=== PATIENT | female | born 2000 ===

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

== ENCOUNTER 2020-05-07 07:31 | Emergency (ER) | payer OTHER, SELFPAY ==
--- NOTE | ~2020-05-07 | CT_ITS ---
EXAMINATION: CT ABDOMEN AND PELVIS WITH CONTRAST CLINICAL INFORMATION: Right-sided abdominal pain COMPARISON: None TECHNIQUE: Multidetector volumetric images were obtained from the superior aspect of the liver through the pubic symphysis following administration 85 mL of Omnipaque 350 intravenous contrast. Sagittal and coronal reformatted images were obtained on the technologist's workstation. Oral contrast: No This CT examination was performed using dose optimization techniques as appropriate, variously including the following: *Automated exposure control *Adjustment of mA and/or kV according to patient size (this includes techniques or standardized protocols for targeted exams where dose is matched to indication/reason for exam; i.e. extremities or head) *Use of iterative reconstruction technique DLP: 384 mGy-cm FINDINGS: LUNG BASES: There is a 5 mm nodule left lower lobe axial image 1, series 5. Rest of lungs are clear. The heart size and pulmonary vascularity is normal. LIVER, GALLBLADDER, AND BILIARY TREE: The liver is normal in size, shape, and attenuation. No focal hepatic lesion or biliary ductal dilatation is present. The gallbladder is unremarkable with no evidence of radiopaque gallstones, gallbladder wall thickening, or obvious pericholecystic inflammatory changes. PANCREAS: Unremarkable. SPLEEN: Unremarkable. ADRENAL GLANDS: Unremarkable. KIDNEYS AND URETERS: The kidneys are normal in size, shape, and attenuation. No hydronephrosis or calculi seen. Mild bilateral ureteral prominence is seen but no obstructive etiology seen. No perinephric stranding. BLADDER: Unremarkable. GASTROINTESTINAL TRACT: There is moderate stool and gas seen throughout the colon without significant distention. The cecum and I see ejection lies in the right pelvis. The small bowel loops are normal caliber. Appendix is not visualized well. ABDOMINAL WALL: No significant hernia is appreciated. LYMPH NODES: Normal. VASCULAR: Unremarkable. PELVIC VISCERA: There is a regular shaped thick-walled enhancing corpus luteal cyst in the left ovary measuring 2.1 x 1.40 cm. The uterus is anteverted and heterogeneous. No free fluid seen. OSSEOUS STRUCTURES: Unremarkable. CT/CT abdomen pelvis w con IMPRESSION: Moderate to significant constipation. No inflammatory process in the right lower quadrant. Appendix is not seen. No radiopaque urolith. Nonspecific bilateral prominence of both ureters without obstructive etiology. Small corpus luteal cyst left ovary.
--- NOTE | ~2020-05-07 | US_ITS ---
EXAMINATION: US ABDOMEN LIMITED CLINICAL INFORMATION: Right upper quadrant abdominal pain. COMPARISON: None TECHNIQUE: Real-time imaging of the right upper quadrant abdominal viscera. FINDINGS: PANCREAS: Visualized portions unremarkable. Tail obscured by bowel gas shadowing. LIVER: Unremarkable. GALLBLADDER: Unremarkable. COMMON BILE DUCT: Normal in caliber measuring 0.5 cm in diameter. RIGHT KIDNEY: 9.1 cm. Unremarkable. FREE FLUID: None. US/US abdomen limited IMPRESSION: Unremarkable right upper quadrant abdominal ultrasound.
[2020-05-07 07:45] VITALS: BP 116/90; PULSE 66; RESP 16; TEMP 36.8; O2SAT 98; BMI 22.9
[2020-05-07 08:31] VITALS: BP 120/78; PULSE 76; RESP 18; O2SAT 99
--- NOTE | 2020-05-07 08:32 | ED.ABDPAIN ---
HPI - Abdominal Pain General Chief Complaint: Abdominal Pain Stated Complaint: abd pain, vomiting blood Time Seen by Provider: 05/07/20 08:29 Source: patient Mode of arrival: ambulatory Limitations: no limitations History of Present Illness HPI narrative: This is a 20-year-old female with history of A0 vaginal delivery her son is now 1 years old otherwise no past medical/surgical history presenting ambulatory to triage with complaint of right-sided abdominal pain which is described as diffuse mostly in the right upper quadrant ongoing for the past 1 month no specific pattern with p.o. intake pain is described as stabbing and sharp intermittent that makes her nauseated and pain became severe last night after she had burger for dinner and throughout the night had severe right-sided abdominal pain that is shooting like. There is associated nausea and vomiting but no diarrhea. MD elicited complaint: abdominal pain Pertinent past history: none Onset (ago): day(s) Pain Consistency: constant Location: diffuse, RUQ and RLQ Severity: severe Quality: stabbing and aching Radiation: none Migration to: no migration Exacerbating factors: movement Relieving factors: nothing Associated symptoms: nausea Related Data Previous Rx's Medication Instructions Recorded magnesium citrate 300 ml PO DAILY PRN #296 ml 05/07/20 polyethylene glycol 3350 [Miralax] 17 g PO DAILY PRN #238 g 05/07/20 Allergies Allergy/AdvReac Type Severity Reaction Status Date / Time No Known Allergies Allergy Verified 05/07/20 07:48 [No Known Allergies*] Review of Systems Review of Systems Constitutional: No Weight loss, No Fever, No Chills, No Night Sweats, No Fatigue, No Malaise ENT/Mouth: No Hearing loss, No Ear Pain, No Nasal Congestion, No Sinus Pain, No Hoarseness, No sore throat, No Rhinorrhea, No Swallowing Difficulty Eyes: No Eye Pain, No Swelling, No Redness, No Foreign Body, No Discharge, No Vision Changes Cardiovascular: No Chest Pain, No SOB, No Dyspnea on Exertion, No Orthopnea, No Edema, No Palpitations Respiratory: No Cough, No Sputum, No Wheezing, No Smoke Exposure, No Dyspnea Gastrointestinal: As noted per HPI, No Hematochezia, No Melena Genitourinary: No Dysuria, No Urinary Frequency, No Hematuria, No Urinary Incontinence, No Urgency, No Flank Pain, No Urinary Flow Changes, No Hesitancy Musculoskeletal: No joint pain, No Myalgias, No Joint Swelling Skin: No Skin Lesions, No rash Neuro: No Weakness, No Numbness, No Paresthesias, No Loss of Consciousness, No Dizziness, No Headache Psych: No Social Issues Heme/Lymph: No Bruising, No Bleeding,No Lymphadenopathy Endocrine: No Polyuria, No Polydipsia, No Temperature Intolerance Yes all other systems are reviewed and are negative Physical Exam Vital Signs: Vital Signs: Last Vital Signs Temp 98.3 F 05/07/20 07:45 Pulse 80 05/07/20 10:19 Resp 18 05/07/20 10:19 BP 92/56 L 05/07/20 10:19 Pulse Ox 100 05/07/20 10:19 Body Mass Index 22.9 Reviewed Const: General: acute distress (Appears uncomfortable intermittently grimacing) mild; No intoxicated appearing Nutritional Appearance: average body habitus Orientation/consciousness: patient oriented x3 HENMT: Head: Yes normal to inspection Ears: hearing grossly normal bilaterally Eyes: General: appearance normal, both eyes and all related structures Visual Cook: normal visual cook by confrontation Neck: Neck: Yes normal visual inspection, No positive Brudzinski's sign, No positive Kernig's sign and No tender Thyroid: Thyroid normal Chest: Chest palpation & inspection: normal inspection of the chest Resp: Effort & Inspection: normal respiratory effort Auscultation: clear to auscultation bilaterally Cardio: Jugular venous distension: no JVD Rhythm: regular rhythm Heart sounds: S1 normal heart sound present and S2 normal heart sound present GI: Other: Started crying and became tearful with palpation of the abdomen Inspection: Yes normal to inspection Palpation (GI): Soft to palpation, Tenderness to palpation present (GI) in the RLQ and in the RUQ, Guarding due to palpation present (GI) in the RLQ and in the RUQ, No hepatosplenomegaly present and Palpable mass present Percussion: Yes normal to percussion Auscultation: normal bowel sounds : General: Yes no CVA tenderness Back/Spine/Pelvis: Back: no CVA tenderness Skin: General skin exam: no rashes or lesions noted Neuro: General: patient oriented x3 Extrem: General: Yes normal to inspection Course Reevaluation(s) Reevaluation #1: Ultrasound without evidence of acute coli. Labs with no leukocytosis, Exam still tenderness diffusely on the right side proceed to abdominal pelvis CT rule out acute appy. She does tell me she has been having BMs per her usual. Reevaluation #2: 1010 Resting comfortably at this time in no acute distress. Informed that there might be slight delay in CT read given downtime unable to view imaging. Reevaluation #3: 1100 CT abdomen pelvis shows significant constipation otherwise no acute appy. Has not had any nausea or vomiting here in the ED and resting comfortably. Given the reassuring labs and imaging findings will start her on bowel regimen and outpatient follow-up. MDM - Abdominal Pain MDM Narrative Medical decision making narrative: Acute coli versus appendicitis diffusely tender on the right side abdomen both right upper and lower quadrant. Afebrile, non tachy, blood pressure within normal limits. Lab work including type and screen ordered. Gallbladder ultrasound/abdominal pelvis CT rule out acute coli versus appendicitis versus perforation. Will treat with fluids, p.r.n. analgesia and antiemetics. Differential Diagnosis Differential diagnosis: Likely abdominal pain and acute appendicitis; Unlikely aortic dissection, bowel perforation, calculus of kidney, constipation, diverticulitis, endometriosis, gastroenteritis, gastritis, mesenteric ischemia, ovarian cyst, pancreatitis, peptic ulcer disease, renal colic and small bowel obstruction Medical Records Attestation: I reviewed the patient's medical records. Lab Data Attestation: I reviewed the patient's lab results. Result diagrams: 05/07/20 08:51 05/07/20 08:51 Labs: Lab Results 05/07/20 05/07/20 05/07/20 Range/Units 08:51 08:51 08:51 WBC 6.4 (4.8-10.8) X10*3/uL RBC 4.79 (4.20-5.50) X10*6/uL Hgb 13.1 (12.0-16.0) g/dl Hct 40.3 (37-47) % MCV 84.1 (80-98) fL MCH 27.3 (27.0-33.0) pg MCHC 32.5 (31.0-35.0) g/dl RDW 12.6 (11.0-16.0) % Plt Count 211 (160-400) X10*3/uL MPV 12.3 (9.4-12.3) fL Immature Gran % (Auto) 0.3 (0.0-0.4) % Neut % (Auto) 56.6 (45-73) % Lymph % (Auto) 31.2 (20-40) % Cook % (Auto) 10.1 (2-11) % Eos % (Auto) 1.3 (0-4) % Baso % (Auto) 0.5 (0-2) % Lymph # (Auto) 2.0 (1.2-4.9) X10*3/uL Cook # (Auto) 0.6 (0.1-1.2) X10*3/uL Eos # (Auto) 0.1 (0.0-0.4) X10*3/uL Baso # (Auto) 0.0 (0.0-0.2) X10*3/uL Abs Immat Gran (auto) 0.02 (0.00-0.03) X10*3/uL Absolute Neuts (auto) 3.6 (2.0-8.3) X10*3/uL Absolute Nucleated RBC 0.000 (0.0-0.012) X10*3/uL Nucleated RBC % (auto) 0.0 (0.0-0.2) /100WBC PT 12.5 (10.8-13.0) SEC INR 1.1 (0.9-1.1) APTT 40.1 H (24.1-38.0) SEC Sodium 138 (135-145) mmol/L Potassium 4.1 (3.3-5.1) mmol/L Chloride 108 (96-108) mmol/L Carbon Dioxide 21 L (22-29) mmol/L Anion Gap 13 (12-20) BUN 12 (9-16) mg/dL Creatinine 0.79 (0.5-1.4) mg/dL Estim Creat Clear Calc 79.7 Estimated GFR > 60 Random Glucose 104 (60-115) mg/dL Calcium 8.9 (8.4-10.2) mg/dL Total Bilirubin 0.2 (0.0-1.0) mg/dL AST 15 (5-31) U/L ALT 11 (0-31) U/L Alkaline Phosphatase 66 (39-117) U/L Troponin I High Sens (<3.5-17.0) ng/L Total Protein 7.8 (6.5-8.0) g/dL Albumin 4.3 (3.5-5.0) g/dL Urine Color Urine Appearance Urine pH (5.0-8.0) Ur Specific [place] (1.005-1.025) Urine Protein (NEG-TRACE) MG/DL Urine Glucose (UA) (NEG) MG/DL Urine Ketones (NEG) MG/DL Urine Blood (NEG) Urine Nitrite (NEG) Ur Leukocyte Esterase (NEG) Urine RBC (0) /HPF Urine WBC (0-4) /HPF Ur Squamous Epith Cells /LPF Urine Bacteria /LPF Urine Mucus /LPF Urine Test (NEGATIVE) COVID-19 ([facility]) (Negative) COVID-19 Clin Com Blood Type Antibody Screen 05/07/20 05/07/20 05/07/20 Range/Units 08:51 08:51 08:51 WBC (4.8-10.8) X10*3/uL RBC (4.20-5.50) X10*6/uL Hgb (12.0-16.0) g/dl Hct (37-47) % MCV (80-98) fL MCH (27.0-33.0) pg MCHC (31.0-35.0) g/dl RDW (11.0-16.0) % Plt Count (160-400) X10*3/uL MPV (9.4-12.3) fL Immature Gran % (Auto) (0.0-0.4) % Neut % (Auto) (45-73) % Lymph % (Auto) (20-40) % Cook % (Auto) (2-11) % Eos % (Auto) (0-4) % Baso % (Auto) (0-2) % Lymph # (Auto) (1.2-4.9) X10*3/uL Cook # (Auto) (0.1-1.2) X10*3/uL Eos # (Auto) (0.0-0.4) X10*3/uL Baso # (Auto) (0.0-0.2) X10*3/uL Abs Immat Gran (auto) (0.00-0.03) X10*3/uL Absolute Neuts (auto) (2.0-8.3) X10*3/uL Absolute Nucleated RBC (0.0-0.012) X10*3/uL Nucleated RBC % (auto) (0.0-0.2) /100WBC PT (10.8-13.0) SEC INR (0.9-1.1) APTT (24.1-38.0) SEC Sodium (135-145) mmol/L Potassium (3.3-5.1) mmol/L Chloride (96-108) mmol/L Carbon Dioxide (22-29) mmol/L Anion Gap (12-20) BUN (9-16) mg/dL Creatinine (0.5-1.4) mg/dL Estim Creat Clear Calc Estimated GFR Random Glucose (60-115) mg/dL Calcium (8.4-10.2) mg/dL Total Bilirubin (0.0-1.0) mg/dL AST (5-31) U/L ALT (0-31) U/L Alkaline Phosphatase (39-117) U/L Troponin I High Sens < 3.5 (<3.5-17.0) ng/L Total Protein (6.5-8.0) g/dL Albumin (3.5-5.0) g/dL Urine Color YELLOW Urine Appearance CLEAR Urine pH 6.0 (5.0-8.0) Ur Specific [place] 1.025 (1.005-1.025) Urine Protein NEG (NEG-TRACE) MG/DL Urine Glucose (UA) NEG (NEG) MG/DL Urine Ketones NEG (NEG) MG/DL Urine Blood NEG (NEG) Urine Nitrite NEG (NEG) Ur Leukocyte Esterase NEG (NEG) Urine RBC 0 (0) /HPF Urine WBC 1-4 (0-4) /HPF Ur Squamous Epith Cells 1+ /LPF Urine Bacteria TRACE /LPF Urine Mucus 1+ /LPF Urine Test (NEGATIVE) COVID-19 ([facility]) Negative (Negative) COVID-19 Clin Com See Note Blood Type Antibody Screen 05/07/20 05/07/20 Range/Units 08:51 09:30 WBC (4.8-10.8) X10*3/uL RBC (4.20-5.50) X10*6/uL Hgb (12.0-16.0) g/dl Hct (37-47) % MCV (80-98) fL MCH (27.0-33.0) pg MCHC (31.0-35.0) g/dl RDW (11.0-16.0) % Plt Count (160-400) X10*3/uL MPV (9.4-12.3) fL Immature Gran % (Auto) (0.0-0.4) % Neut % (Auto) (45-73) % Lymph % (Auto) (20-40) % Cook % (Auto) (2-11) % Eos % (Auto) (0-4) % Baso % (Auto) (0-2) % Lymph # (Auto) (1.2-4.9) X10*3/uL Cook # (Auto) (0.1-1.2) X10*3/uL Eos # (Auto) (0.0-0.4) X10*3/uL Baso # (Auto) (0.0-0.2) X10*3/uL Abs Immat Gran (auto) (0.00-0.03) X10*3/uL Absolute Neuts (auto) (2.0-8.3) X10*3/uL Absolute Nucleated RBC (0.0-0.012) X10*3/uL Nucleated RBC % (auto) (0.0-0.2) /100WBC PT (10.8-13.0) SEC INR (0.9-1.1) APTT (24.1-38.0) SEC Sodium (135-145) mmol/L Potassium (3.3-5.1) mmol/L Chloride (96-108) mmol/L Carbon Dioxide (22-29) mmol/L Anion Gap (12-20) BUN (9-16) mg/dL Creatinine (0.5-1.4) mg/dL Estim Creat Clear Calc Estimated GFR Random Glucose (60-115) mg/dL Calcium (8.4-10.2) mg/dL Total Bilirubin (0.0-1.0) mg/dL AST (5-31) U/L ALT (0-31) U/L Alkaline Phosphatase (39-117) U/L Troponin I High Sens (<3.5-17.0) ng/L Total Protein (6.5-8.0) g/dL Albumin (3.5-5.0) g/dL Urine Color Urine Appearance Urine pH (5.0-8.0) Ur Specific [place] (1.005-1.025) Urine Protein (NEG-TRACE) MG/DL Urine Glucose (UA) (NEG) MG/DL Urine Ketones (NEG) MG/DL Urine Blood (NEG) Urine Nitrite (NEG) Ur Leukocyte Esterase (NEG) Urine RBC (0) /HPF Urine WBC (0-4) /HPF Ur Squamous Epith Cells /LPF Urine Bacteria /LPF Urine Mucus /LPF Urine Test NEGATIVE (NEGATIVE) COVID-19 ([facility]) (Negative) COVID-19 Clin Com Blood Type O Positive Antibody Screen NEGATIVE Imaging Data Abdominal/pelvis CT with IV contrast: Radiologist's impression: [address] [id number] Scan ReportSigned Patient: Miranda PurdyMR#: [id number]: 2000Acct:[id number]/Sex: 20 / FADM Date: 05/07/20Loc: Nathalie Dr: Ordering Physician: Gregor Amanda NP Date of Service: 05/07/20 Procedure(s): CT abdomen pelvis w con Accession Number(s): [id number] cc: Gregor Amanda NP~ EXAMINATION: CT ABDOMEN AND PELVIS WITH CONTRAST CLINICAL INFORMATION: Right-sided abdominal pain COMPARISON: None TECHNIQUE: Multidetector volumetric images were obtained from the superior aspect of the liver through the pubic symphysis following administration 85 mL of Omnipaque 350 intravenous contrast. Sagittal and coronal reformatted images were obtained on the technologist's workstation. Oral contrast: No This CT examination was performed using dose optimization techniques as appropriate, variously including the following: *Automated exposure control *Adjustment of mA and/or kV according to patient size (this includes techniques or standardized protocols for targeted exams where dose is matched to indication/reason for exam; i.e. extremities or head) *Use of iterative reconstruction technique DLP: 384 mGy-cm FINDINGS: LUNG BASES: There is a 5 mm nodule left lower lobe axial image 1, series 5. Rest of lungs are clear. The heart size and pulmonary vascularity is normal. LIVER, GALLBLADDER, AND BILIARY TREE: The liver is normal in size, shape, and attenuation. No focal hepatic lesion or biliary ductal dilatation is present. The gallbladder is unremarkable with no evidence of radiopaque gallstones, gallbladder wall thickening, or obvious pericholecystic inflammatory changes. PANCREAS: Unremarkable. SPLEEN: Unremarkable. ADRENAL GLANDS: Unremarkable. KIDNEYS AND URETERS: The kidneys are normal in size, shape, and attenuation. No hydronephrosis or calculi seen. Mild bilateral ureteral prominence is seen but no obstructive etiology seen. No perinephric stranding. BLADDER: Unremarkable. GASTROINTESTINAL TRACT: There is moderate stool and gas seen throughout the colon without significant distention. The cecum and I see ejection lies in the right pelvis. The small bowel loops are normal caliber. Appendix is not visualized well. ABDOMINAL WALL: No significant hernia is appreciated. LYMPH NODES: Normal. VASCULAR: Unremarkable. PELVIC VISCERA: There is a regular shaped thick-walled enhancing corpus luteal cyst in the left ovary measuring 2.1 x 1.40 cm. The uterus is anteverted and heterogeneous. No free fluid seen. OSSEOUS STRUCTURES: Unremarkable. CT/CT abdomen pelvis w con IMPRESSION: Moderate to significant constipation. No inflammatory process in the right lower quadrant. Appendix is not seen. No radiopaque urolith. Nonspecific bilateral prominence of both ureters without obstructive etiology. Small corpus luteal cyst left ovary. Dictated By:SUNITA PIEDRA MDSigned By:<Electronically signed by SUNITA PIEDRA MD in OV>05/07/20 1058 DD/ 0831TD/TT: Aviation Program Manager: NICKI Abdominal ultrasound: Radiologist's impression: Miranda Purdy 20 F [address] [facility] [place] [id number] ReportSigned Patient: Miranda PurdyMR#: [id number]: 2000Acct:[id number]/Sex: 20 / FADM Date: 05/07/20Loc: DREAAttmin Dr: Ordering Physician: Gregor Amanda NP Date of Service: 05/07/20 Procedure(s): US abdomen limited Accession Number(s): [id number] cc: Gregor Amanda NP~ EXAMINATION: US ABDOMEN LIMITED CLINICAL INFORMATION: Right upper quadrant abdominal pain. COMPARISON: None TECHNIQUE: Real-time imaging of the right upper quadrant abdominal viscera. FINDINGS: PANCREAS: Visualized portions unremarkable. Tail obscured by bowel gas shadowing. LIVER: Unremarkable. GALLBLADDER: Unremarkable. COMMON BILE DUCT: Normal in caliber measuring 0.5 cm in diameter. RIGHT KIDNEY: 9.1 cm. Unremarkable. FREE FLUID: None. US/US abdomen limited IMPRESSION: Unremarkable right upper quadrant abdominal ultrasound. Dictated By:AIDEE YI MDSigned By:<Electronically signed by AIDEE YI MD in OV>05/07/20925 DD/ 8TD/TT: Aviation Program Manager: KADEEM Discharge Plan Discharge Clinical Impression: Constipation Patient Disposition: Home, Self-Care Instructions: Constipation (ED) Additional Instructions: Your blood work was overall stable today Your COVID test was negative The ultrasound of her gallbladder was within normal limits. CT scan showed significant constipation otherwise no acute intra-abdominal process Push fluids, high-fiber diet, stool softeners as reviewed Return if any concerns or worsening symptoms Thank you Prescriptions: New polyethylene glycol 3350 [Miralax] 17 gram/dose powder 17 g PO DAILY PRN (Reason: laxative effect) Qty: 238 RF: 0 magnesium citrate Solution 300 ml PO DAILY PRN (Reason: constipation) Qty: 296 RF: 2 Referrals: Gina Arroyo MD [Primary Care Provider] - 3 days Stand Alone Forms: Work/School Release [facility] Past Medical History Medical History No known health problems Social History Social History Smoking Status: Never smoker Use of substances other than those prescribed or required for medical reasons: No Advance Directives: No Advance Directives Information Provided: No
[2020-05-07] MEDS: 0.9 % Sodium Chloride 1,000 ML 999 ML IV (08:57)
[2020-05-07] MEDS: Morphine Sulfate 4 MG/ML CARTRIDGE IVPUSH (08:57)
[2020-05-07] MEDS: ondansetron HCL 4 MG/2 ML VIAL IVPUSH (08:57)
[2020-05-07 09:06] LABS: MANUAL DIFF FLAG NO
[2020-05-07 09:10] LABS: Basophils Percent Auto 0.5 % (0-2); Eosinophils Absolute Auto 0.1 X10*3/uL (0.0-0.4); Eosinophils Percent Auto 1.3 % (0-4); Hematocrit 40.3 % (37-47); Hemoglobin 13.1 g/dl (12.0-16.0); Imm Gran Abs Auto 0.02 X10*3/uL (0.00-0.03); Imm Gran Pct Auto 0.3 % (0.0-0.4); Lymphocytes Percent Auto 31.2 % (20-40); Mean Corpuscular HGB Conc 32.5 g/dl (31.0-35.0); Mean Corpuscular Hemoglobin 27.3 pg (27.0-33.0); Mean Corpuscular Volume 84.1 fL (80-98); Mean Platelet Volume 12.3 fL (9.4-12.3); Monocytes Absolute Auto 0.6 X10*3/uL (0.1-1.2); Monocytes Percent Auto 10.1 % (2-11); Neutrophils Absolute Auto 3.6 X10*3/uL (2.0-8.3); Neutrophils Percent Auto 56.6 % (45-73); Platelet Count 211 X10*3/uL (160-400); Red Blood Count 4.79 X10*6/uL (4.20-5.50); Red Cell Distribution Width 12.6 % (11.0-16.0); White Blood Count 6.4 X10*3/uL (4.8-10.8)
[2020-05-07 09:16] LABS: Glucose Urine UA NEG (NEG); Leukocyte Esterase Urine NEG (NEG); Nitrite Urine NEG (NEG); Specific Gravity - Urine 1.025 (1.005-1.025); Urine Blood NEG (NEG); Urine Ketones NEG (NEG); Urine Protein NEG (NEG-TRACE)
[2020-05-07 09:18] LABS: INTERNATIONAL NORM RATIO 1.1 (0.9-1.1); Prothrombin Time 12.5 SEC (10.8-13.0)
[2020-05-07 09:19] LABS: Appearance Urine CLEAR; Color Urine YELLOW; UPreg QC Valid YES; Urine Pregnancy NEGATIVE (NEGATIVE)
[2020-05-07 09:21] LABS: Partial Thromboplastin Time 40.1 SEC (24.1-38.0)
[2020-05-07 09:24] LABS: COVID-19 Test Negative (Negative); IDNOW Serial# 9DD0AD1C
[2020-05-07 09:29] LABS: Bacteria Urine TRACE /LPF; RBC Urine 0 /HPF (0); Squamous Epithelial Cell Urine 1+ /LPF
[2020-05-07 09:30] LABS: Mucus Urine 1+ /LPF
[2020-05-07 09:37] LABS: Alanine Aminotransferase 11 U/L (0-31); Albumin Level 4.3 g/dL (3.5-5.0); Alkaline Phosphatase 66 U/L (39-117); Anion Gap 13 (12-20); Aspartate Amino Transferase 15 U/L (5-31); Bilirubin Total 0.2 mg/dL (0.0-1.0); Blood Urea Nitrogen 12 mg/dL (9-16); Calcium 8.9 mg/dL (8.4-10.2); Carbon Dioxide 21 mmol/L (22-29); Chloride 108 mmol/L (96-108); Creatinine Clr Calc Pharmacy 79.7; Estimated Glomerular Filt Rate > 60; Glucose Random 104 mg/dL (60-115); Potassium 4.1 mmol/L (3.3-5.1); Sodium 138 mmol/L (135-145); Total Protein 7.8 g/dL (6.5-8.0)
[2020-05-07 09:42] LABS: Troponin-I High Sensitivity < 3.5 ng/L (<3.5-17.0)
[2020-05-07 10:19] VITALS: BP 92/56; PULSE 80; RESP 18; O2SAT 100
[2020-05-07] MEDS: iohexoL 350 MG/ML 100 ML INFUS..BTL IV (10:25)
== END 2020-05-07 11:47 | disposition home or self-care (01) ==
PROVIDERS: Nurse Practitioner Primary Care; Emergency Provider Emergency Medicine Emergency Medical Services; PCP Internal Medicine
DX: K59.00 Constipation, unspecified (principal); Z20.822 Contact with and (suspected) exposure to COVID-19; R10.11 Right upper quadrant pain
CPT/HCPCS: 36415; 74177; 76705; 80053; 81001; 81025; 84484; 85025; 85610; 85730; 86850; 86900; 87635; 96361; 96374; 96375; 99284; J2270; J2405; Q9967

== ENCOUNTER 2020-10-10 14:44 | Emergency (ER) | payer OTHER, SELFPAY | END 2020-10-10 15:20 | disposition left against medical advice (07) | PROVIDERS: Emergency Provider Emergency Medicine | DX: R50.9 Fever, unspecified (principal) ==

== ENCOUNTER 2020-10-11 06:34 | Emergency (ER) | payer OTHER, SELFPAY ==
[2020-10-11 06:55] VITALS: BP 107/69; PULSE 83; RESP 16; TEMP 36.8; O2SAT 98; BMI 52.9
--- NOTE | 2020-10-11 07:02 | ED.HA ---
HPI - Headache General Chief Complaint: Headache Stated Complaint: Headache Time Seen by Provider: 10/11/20 07:02 Source: patient Mode of arrival: ambulatory Limitations: no limitations History of Present Illness MD elicited complaint: headache Pertinent past history: other (2 months of headaches recenty ) Onset (ago): day(s) (5) Onset description: gradually Location: right, left and temporal Severity: moderate Quality & Timing: throbbing Exacerbating factors: light and noise Relieving factors: NSAIDs Context: occurred at rest Associated symptoms: nausea, vomiting and photophobia Treatments prior to arrival: none Related Data Previous Rx's Medication Instructions Recorded magnesium citrate 300 ml PO DAILY PRN #296 ml 05/07/20 polyethylene glycol 3350 17 17 g PO DAILY PRN #238 g 05/07/20 gram/dose oral powder (Miralax) Allergies Allergy/AdvReac Type Severity Reaction Status Date / Time No Known Allergies Allergy Verified 05/13/20 12:09 [No Known Allergies*] Review of Systems Review of Systems: Constitutional : No Fever, No Chills, No Fatigue ENT/Mouth : No sore throat, No Rhinorrhea Eyes: No Eye Pain, No Swelling, No Redness Cardiovascular : No Chest Pain, No SOB, No Dyspnea on Exertion Respiratory : No Cough, No Sputum Gastrointestinal : pos Nausea, No Vomiting, No Diarrhea, No abdominal Pain Genitourinary : No Dysuria, No Urinary Frequency, No Hematuria, Musculoskeletal : No joint pain, No Myalgias, No Joint Swelling Skin : No Skin Lesions, No rash Neuro : No Weakness, No Numbness, No Dizziness, positive Headache Psych : No Anxiety/Panic, No Depression Heme/Lymph: No Bruising, No Bleeding,No Lymphadenopathy Endocrine : No Polyuria, No Polydipsia All other systems reviewed and are negative [facility] Past Medical History Attestation statement: The following information was validated with the patient. Medical History No known health problems Social History Social History (Updated 10/11/20 @ 07:11 by Gem Real DO) Alcohol intake: never Patient Tobacco Use Status: Never used Tobacco Use of substances other than those prescribed or required for medical reasons: No Advance Directives: No Advance Directives Information Provided: No Patient : No Physical Exam Vital Signs: Vital Signs: Last Vital Signs Temp 98.4 F 10/11/20 08:10 Pulse 78 10/11/20 08:10 Resp 16 10/11/20 09:00 BP 95/64 10/11/20 08:10 Pulse Ox 97 10/11/20 08:10 Body Mass Index 52.9 Appearance: Alert. Oriented X3. No acute distress. Eyes: Pupils equal, round and reactive to light. ENT: Pharynx normal. Normal TMs Neck: Normal inspection. Neck supple. CVS: Normal heart rate and rhythm. Pulses normal. Respiratory: No respiratory distress. Breath sounds normal. Abdomen: Soft and nontender. Skin: Skin warm and dry. Normal skin color. Normal skin turgor. Extremities: No lower extremity edema. No calf ttp Neuro: Oriented X 3. No motor deficit. No sensory deficit. Course Course Course Narrative: patient has family emergency has to leave prior to CT scan feels better, stable for DC at this time contaminated UA no urinary symptoms MDM - Headache MDM Narrative Medical decision making narrative: 20 yo female with hx of recent headaches now worse x 5 days, not toxic, no meningeal signs, normal neuro exam - supportive medications ordered, CT head for mass, COVID swab, unsure if he has had fevers - doubt [employer] infection but has had a cough, IVF and IV meds. Given gradual onset and non toxic appearance doubt SAH. Dispo per results and findings. Lab Data Labs: Lab Results 10/11/20 10/11/20 10/11/20 Range/Units 07:37 08:28 08:28 Urine Color YELLOW Urine Appearance HAZY Urine pH 6.0 (5.0-8.0) Ur Specific [place] >= 1.030 H (1.005-1.025) Urine Protein TRACE (NEG-TRACE) MG/DL Urine Glucose (UA) NEG (NEG) MG/DL Urine Ketones 5 (NEG) MG/DL Urine Blood TRACE (NEG) Urine Nitrite NEG (NEG) Ur Leukocyte Esterase NEG (NEG) Urine RBC 1-4 (0) /HPF Urine WBC 15-29 H (0-4) /HPF Ur Squamous Epith Cells 2+ /LPF Urine Bacteria 1+ /LPF Urine Mucus 3+ /LPF Urine Test NEGATIVE (NEGATIVE) Coronavirus (PCR) POSITIVE A (Negative) Influenza Type A (PCR) NEGATIVE (Negative) Influenza Type B (PCR) NEGATIVE (Negative) RSV RNA Qual (PCR) NEGATIVE (Negative) Discharge Plan Discharge Clinical Impression: Tension headache, COVID-19 Patient Disposition: Home, Self-Care Instructions: Acute Headache (ED), COVID-19 (Coronavirus Disease 2019) (ED) Additional Instructions: return to ED for any worsening symptoms or concerns you left prior to getting a CT scan though your headache is likely related to covid please quaratine yourself and wear a mask at all times Prescriptions: No Action polyethylene glycol 3350 [Miralax] 17 gram/dose powder 17 g PO DAILY PRN (Reason: laxative effect) Qty: 238 RF: 0 magnesium citrate Solution 300 ml PO DAILY PRN (Reason: constipation) Qty: 296 RF: 2 Referrals: Physician,Unknown [Primary Care Provider] - 2 days (PCP if not better) Stand Alone Forms: Work/School Release Interventions: ED Discharge Assessment Last Done: 10/11/20 09:10 Discharge Date/Time: 10/11/20 09:15
[2020-10-11 08:10] VITALS: BP 95/64; PULSE 78; RESP 20; TEMP 36.9; O2SAT 97
[2020-10-11] MEDS: 0.9 % Sodium Chloride 1,000 ML 999 ML IVCONT (08:12)
[2020-10-11] MEDS: Ketorolac Tromethamine 15 MG/ML VIAL IVPUSH (08:13)
[2020-10-11] MEDS: diphenhydrAMINE HCL 50 MG/ML VIAL 25 MG IVPUSH (08:13)
[2020-10-11] MEDS: Metoclopramide HCl 10 MG/2 ML VIAL IVPUSH (08:13)
[2020-10-11 08:38] LABS: Glucose Urine UA NEG (NEG); Leukocyte Esterase Urine NEG (NEG); Nitrite Urine NEG (NEG); Specific Gravity - Urine >= 1.030 (1.005-1.025); UACC Culture Trigger NO; Urine Blood TRACE (NEG); Urine Ketones 5 MG/DL (NEG); Urine Protein TRACE MG/DL (NEG-TRACE)
[2020-10-11 08:39] LABS: Appearance Urine HAZY; Color Urine YELLOW; UPreg QC Valid YES
[2020-10-11 08:40] LABS: Urine Pregnancy NEGATIVE (NEGATIVE)
[2020-10-11 08:46] LABS: Bacteria Urine 1+ /LPF; Squamous Epithelial Cell Urine 2+ /LPF; UACC CULT YES
[2020-10-11 08:47] LABS: Mucus Urine 3+ /LPF
[2020-10-11 08:51] LABS: Influenza A PCR NEGATIVE (Negative); Influenza B PCR NEGATIVE (Negative); Resp Syncy Virus RNA Qual PCR NEGATIVE (Negative); SARS COV2 PCR INHOUSE POSITIVE (Negative)
[2020-10-11 09:00] VITALS: RESP 16
== END 2020-10-11 09:15 | disposition home or self-care (01) ==
PROVIDERS: Emergency Provider Emergency Medicine
DX: U07.1 COVID-19 (principal); G44.209 Tension-type headache, unspecified, not intractable; Z79.899 Other long term (current) drug therapy
CPT/HCPCS: 0241U; 36415; 81001; 81025; 96361; 96374; 96375; 99284; 99285; J1200; J1885; J2765

== ENCOUNTER 2022-01-07 00:16 | Emergency (ER) | payer OTHER, SELFPAY ==
[2022-01-07] VITALS (7 sets, daily range): BP systolic 91–111; BP diastolic 50–64; PULSE 55–88; RESP 16–20; TEMP 36.7–37; O2SAT 97–99; BMI 22.9
--- NOTE | ~2022-01-07 | US_ITS ---
EXAMINATION: US PELVIS CLINICAL INFORMATION: Pelvic pain. LMP 12/23/2021. COMPARISON: CT abdomen/pelvis performed earlier today. TECHNIQUE: Ultrasound of the pelvis is performed using both transabdominal and transvaginal transducers along with Doppler. Transvaginal imaging is performed due to inadequate visualization transabdominally. FINDINGS: The uterus is anteverted and measures 7.3 x 3.5 x 4.8 cm. No fibroids noted. The endometrium measures 0.8 cm in thickness without discrete focal abnormality. The right ovary measures 4.3 x 2 x 3 cm (13.5 mL) and the left ovary measures 2.6 x 2.2 x 2.2 cm (6.6 mL). There is preserved flow to both ovaries on color and spectral Doppler at the moment of this examination. The asymmetric enlargement of the right ovary with respect to the left is likely explained by the presence of a 2.9 x 1.8 x 2.5 cm complicated cyst with heterogeneous but avascular content and septations. There is a small amount of free fluid with echogenic content, likely representing blood products. US/US pelvic and transvaginal IMPRESSION: 1. There is a 2.9 cm complex cyst in the right ovary with septations and internal debris favoring to represent a hemorrhagic cyst. There is a small amount of free fluid in the pelvis with blood products, possibly explained by rupture of this margin cyst. Recommend a follow-up pelvic ultrasound in 6-12 weeks to ensure resolution of these findings. 2. No evidence of ovarian torsion at the moment of this examination.
--- NOTE | ~2022-01-07 | CT_ITS ---
EXAMINATION: CT ABDOMEN AND PELVIS WITHOUT CONTRAST CLINICAL INFORMATION: Lower abdominal pain. COMPARISON: CT abdomen/pelvis 05/07/2020. TECHNIQUE: Multidetector volumetric imaging was performed from the superior aspect of the liver through the pubic symphysis. Sagittal and coronal reformatted images were obtained on the technologist's workstation. This CT examination was performed using dose optimization techniques as appropriate, variously including the following: *Automated exposure control *Adjustment of mA and/or kV according to patient size (this includes techniques or standardized protocols for targeted exams where dose is matched to indication/reason for exam; i.e. extremities or head) *Use of iterative reconstruction technique DLP: 292 mGy-cm FINDINGS: LUNG BASES: Partially imaged left lower lobe pulmonary nodule, approximately 3 mm (4:1), stable compared to 05/07/2020. No focal consolidation or pleural effusion. LIVER, GALLBLADDER, AND BILIARY TREE: The liver is normal in size, shape, and attenuation. No focal hepatic lesion or biliary ductal dilatation is present. The gallbladder is decompressed. No pericholecystic fat stranding. PANCREAS: Unremarkable. SPLEEN: Unremarkable. ADRENAL GLANDS: Unremarkable. KIDNEYS AND URETERS: Punctate bilateral renal calculi. No hydronephrosis. No perinephric fat stranding. BLADDER: Unremarkable. GASTROINTESTINAL TRACT: The stomach and the small bowel are nondilated. Normal appendix (images 55 through 57, series 3). No pericolic inflammatory changes. No evidence of bowel obstruction. ABDOMINAL WALL: No significant hernia is appreciated. LYMPH NODES: Limited assessment in view of lack of IV contrast and paucity of abdominal fat. No bulky lymphadenopathy. VASCULAR: Limited noncontrast examination. Abdominal aorta is of normal diameter. PELVIC VISCERA: Uterus and adnexa are poorly delineated. There is free fluid in the right adnexal region and cul-de-sac with hyperattenuating content in the right adnexal region (3:64) measuring up to 53 Hounsfield units, possibly blood products. OSSEOUS STRUCTURES: No acute or aggressive appearing osseous abnormalities. CT/CT abdomen pelvis wo IV con IMPRESSION: 1. Free fluid in the right adnexal region and cul-de-sac with hyperattenuating content within the fluid of the right adnexal region, likely representing blood products. Findings could be associated with a rupture hemorrhagic cyst, however evaluation is somewhat limited in the absence of IV contrast as the ovaries are not well delineated. Recommend correlation with a pelvic ultrasound. 2. Nonobstructive bilateral renal calculi. 3. Normal appendix.
--- NOTE | ~2022-01-07 | US_ITS ---
EXAMINATION: US PELVIS CLINICAL INFORMATION: Pelvic pain. LMP 12/23/2021. COMPARISON: CT abdomen/pelvis performed earlier today. TECHNIQUE: Ultrasound of the pelvis is performed using both transabdominal and transvaginal transducers along with Doppler. Transvaginal imaging is performed due to inadequate visualization transabdominally. FINDINGS: The uterus is anteverted and measures 7.3 x 3.5 x 4.8 cm. No fibroids noted. The endometrium measures 0.8 cm in thickness without discrete focal abnormality. The right ovary measures 4.3 x 2 x 3 cm (13.5 mL) and the left ovary measures 2.6 x 2.2 x 2.2 cm (6.6 mL). There is preserved flow to both ovaries on color and spectral Doppler at the moment of this examination. The asymmetric enlargement of the right ovary with respect to the left is likely explained by the presence of a 2.9 x 1.8 x 2.5 cm complicated cyst with heterogeneous but avascular content and septations. There is a small amount of free fluid with echogenic content, likely representing blood products. US/US pelvic ovarian doppler IMPRESSION: 1. There is a 2.9 cm complex cyst in the right ovary with septations and internal debris favoring to represent a hemorrhagic cyst. There is a small amount of free fluid in the pelvis with blood products, possibly explained by rupture of this margin cyst. Recommend a follow-up pelvic ultrasound in 6-12 weeks to ensure resolution of these findings. 2. No evidence of ovarian torsion at the moment of this examination.
[2022-01-07 01:15] LABS: MANUAL DIFF FLAG NO
[2022-01-07 01:17] LABS: Basophils Percent Auto 0.4 % (0-2); Eosinophils Absolute Auto 0.1 X10*3/uL (0.0-0.4); Eosinophils Percent Auto 1.5 % (0-4); Hematocrit 40.4 % (37.0-47.0); Hemoglobin 13.3 g/dl (12.0-16.0); Imm Gran Abs Auto 0.03 X10*3/uL (0.00-0.03); Imm Gran Pct Auto 0.4 % (0.0-0.4); Lymphocytes Absolute Auto 2.1 X10*3/uL (1.2-4.9); Mean Corpuscular HGB Conc 32.9 g/dl (31.0-35.0); Mean Corpuscular Hemoglobin 27.7 pg (27.0-33.0); Mean Corpuscular Volume 84.2 fL (80.0-98.0); Mean Platelet Volume 11.1 fL (9.4-12.3); Monocytes Absolute Auto 0.6 X10*3/uL (0.1-1.2); Monocytes Percent Auto 7.7 % (2-11); Neutrophils Absolute Auto 5.1 x10*3/uL (2.0-8.3); Platelet Count 229 X10*3/uL (160-400); Red Cell Distribution Width 12.3 % (11.0-16.0); White Blood Count 7.9 X10*3/uL (4.8-10.8)
[2022-01-07 01:20] LABS: Appearance Urine Clear; Color Urine Yellow; Glucose Urine UA Negative (Negative); Leukocyte Esterase Urine Trace (Negative); Nitrite Urine Negative (Negative); Specific Gravity - Urine 1.015 (1.005-1.025); UMIC TRIGGER UACC YES; Urine Blood Negative (Negative); Urine Ketones Negative (Negative); Urine Protein Negative (Neg-Trace)
[2022-01-07 01:22] LABS: Bacteria Urine None Seen (None Seen); Hyaline Casts Urine 0-2 /LPF (0-2); RBC Urine 0-2 /HPF (0-2); Squamous Epithelial Cell Urine 0-2 /HPF (0-2); UPreg QC Valid YES; Urine Pregnancy NEGATIVE (NEGATIVE); WBC Urine 0-5 /HPF (0-5)
[2022-01-07 01:33] LABS: Alanine Aminotransferase 10 U/L (0-31); Albumin Level 4.4 g/dL (3.5-5.0); Alkaline Phosphatase 60 U/L (39-117); Anion Gap 15 (12-20); Aspartate Amino Transferase 14 U/L (5-31); Bilirubin Total 0.2 mg/dL (0.0-1.0); Blood Urea Nitrogen 12 mg/dL (9-16); Calcium 9.4 mg/dL (8.4-10.2); Carbon Dioxide 24 mmol/L (22-29); Chloride 105 mmol/L (96-108); Creatinine Clr Calc Pharmacy 73.5; Estimated Glomerular Filt Rate > 60; Glucose Random 90 mg/dL (60-115); Potassium 3.6 mmol/L (3.3-5.1); Sodium 140 mmol/L (135-145); Total Protein 7.9 g/dL (6.5-8.0)
[2022-01-07] MEDS: Ketorolac Tromethamine 15 MG/ML VIAL IVPUSH (04:18)
[2022-01-07] MEDS: 0.9 % Sodium Chloride 1,000 ML 999 ML IV (04:18)
[2022-01-07] MEDS: Morphine Sulfate 2 MG/ML CARTRIDGE 1 MG IVPUSH (04:19)
--- NOTE | 2022-01-07 04:23 | PC.NURSE ---
Pt a&o, no sob or chest pain. pt complaining of lower abd pain, pt denies any pain during urination. Pt did have a normal bowel movement today. pt denies any N/V. pain level is 8/10 medicated per Mar will continue to monitor.
[2022-01-07 04:33] LABS: Lipase 42 U/L (8-78)
--- NOTE | 2022-01-07 05:36 | PC.NURSE ---
pt resting in bed. pt requesting additional pain medication. Provider aware.
--- NOTE | 2022-01-07 05:41 | ED_ITS ---
HPI - Abdominal Pain General Chief Complaint: Abdominal Pain Stated Complaint: Lower abd pain Time Seen by Provider: 01/07/22 03:47 Source: patient and family Mode of arrival: ambulatory Limitations: no limitations History of Present Illness HPI narrative: 21-year-old female presented with lower abdominal pain, pain started few hours before coming to the ED, pain is constant severe dull aching pain localized to lower pelvic area bilaterally, sexually active with 1 partner declined risk for STD, no dysuria, no frequency urination, no vaginal bleeding , no vomiting, no nausea, normal bowel movements, no relieving factor, no aggravating factor. Never had this pain in the past. No history of abdominal surgery in the past. Patient declined chance of pain . Related Data Previous Rx's Medication Instructions Recorded magnesium citrate 300 ml PO DAILY PRN constipation 05/07/20 #296 mL polyethylene glycol 3350 17 17 g PO DAILY PRN laxative effect 05/07/20 gram/dose oral powder (Miralax) #238 grams Allergies Allergy/AdvReac Type Severity Reaction Status Date / Time No Known Allergies Allergy Verified 05/13/20 12:09 [No Known Allergies*] Review of Systems Review of Systems All other systems are reviewed and are negative Constitutional: Reports as per HPI and Reports no additional constitutional complaints Eyes: Reports as per HPI and Reports no additional eye complaints Reports system reviewed and no additional complaints, except as documented Cardiovascular: Reports as per HPI and Reports no additional cardiovascular complaints Respiratory: Reports as per HPI and Reports no additional respiratory complaints Gastrointestinal: Reports as per HPI and Reports no additional gastrointestinal complaints Genitourinary: Reports no additional female genitourinary complaints Musculoskeletal: Reports no additional musculoskeletal complaints Skin/Breast: Reports system reviewed and no additional complaints, except as docu Psychiatric: Reports no additional psychiatric complaints Endocrine: Reports no additional endocrine complaints Hematologic/Lymphatic: Reports no additional hematologic/lymphatic complaints Allergic/Immunologic: Reports no additional allergic/immunologic complaints Reports system reviewed and no additional complaints, except as documented and Reports Abnormal speech present [facility] Past Medical History Medical History No known health problems Social History Social History Alcohol intake: never Patient Tobacco Use Status: Never used Tobacco Use of substances other than those prescribed or required for medical reasons: No Advance Directives: No Advance Directives Information Provided: No Physical Exam ED Vital Signs: Vital Signs - 24 hr 01/07/22 00:50 01/07/22 03:11 01/07/22 06:18 Temperature 98.6 F 98.1 F 98.2 F Pulse Rate 88 64 62 Respiratory Rate 20 18 18 Blood Pressure 111/63 93/50 L 91/55 L Pulse Oximetry 99 99 97 Oxygen Delivery Method Room Air Room Air Room Air BMI result Body Mass Index 22.9 vital signs have been reviewed as appeared to be correct. Blood pressure normal. Heart rate normal. Respiration rate normal. Temperature normal. Oxygen saturation normal. Appearance: Alert. Oriented X3. No acute distress. Head: Normal external exam. Normocephalic. Atraumatic. No Pillai signs noted. No raccoon eyes noted Eyes: PERRLA. EOMI. Conjunctiva and sclera normal. Eyelids normal. ENT: TM's Normal. Pharynx normal. Uvula midline. Moist mucous membranes. No trismus noted. No drooling noted. No muffled voice noted. Neck: Normal inspection. Neck supple. FROM. No adenopathy. Thyroid Normal. No meningeal signs. No neck mass noted. CVS: Normal heart rate and rhythm. Heart sound normal. No murmurs noted. Pulses normal throughout. Respiratory: No respiratory distress. Painless inspiration. Breath sounds normal . No wheezes/rales/rhonchi noted. Chest nontender. No accessory muscle usage noted or decreased air movement noted. Abdomen: Soft , diffuse tenderness in the lower abdomen, no guarding, no rebound tenderness.. Bowel sounds normal in all 4 quadrants. No distention noted. No organomegaly noted. No visible injury noted. Pelvic exam: Deferred for the ultrasound due to severe patient discomfort. Back: No CVA tenderness. Full range of motion noted. Skin: Skin warm and dry. Normal skin color. Normal skin turgor. No rashes/lesions/lacerations noted. Extremities: No lower extremity edema. Extremities exhibit normal range of motion. Extremities nontender. Neuro: Oriented X 3. Cranial nerve exam: II-XII are grossly intact No motor deficit. No sensory deficit. Reflexes normal. Course Course Course Narrative: 21-year-old female came in with sudden abrupt onset of pelvic pain, exam and finding consistent with a ruptured hemorrhagic cyst, patient had a serial CBC in the ED which showed 2 units drop of hemoglobin in 5 hours which is concern, the case discussed with Dr. Kelly (pending plan ) case signed out to Dr. Paez Medications Administered Discontinued Medications Generic Name Dose Route Start Last Admin Trade Name Nemesio PRN Reason Stop Dose Admin Hydromorphone HCl 1 mg 01/07/22 05:40 01/07/22 05:47 Hydromorphone Hcl 1 Mg/Ml Syringe IVPUSH 01/07/22 05:41 1 mg ONCE ONE Administration Protocol Sodium Chloride 1,000 mls @ 999 mls/hr 01/07/22 03:48 01/07/22 04:18 Ns IV 01/07/22 04:48 999 mls/hr .Q1H1M ONE Administration Ketorolac Tromethamine 15 mg 01/07/22 03:48 01/07/22 04:18 Ketorolac Tromethamine 15 Mg/Ml Vial IVPUSH 01/07/22 03:49 15 mg ONCE ONE Administration Morphine Sulfate 1 mg 01/07/22 03:48 01/07/22 04:19 Morphine Sulfate 2 Mg/Ml Cartridge IVPUSH 01/07/22 03:49 1 mg ONCE ONE Administration Protocol MDM - Abdominal Pain Lab Data Attestation: I reviewed the patient's lab results. Result diagrams: 01/07/22 06:04 01/07/22 01:11 Labs: Lab Results 01/07/22 01/07/22 01/07/22 Range/Units 01:05 01:05 01:11 WBC 7.9 (4.8-10.8) X10*3/uL RBC 4.80 (4.20-5.50) X10*6/uL Hgb 13.3 (12.0-16.0) g/dl Hct 40.4 (37.0-47.0) % MCV 84.2 (80.0-98.0) fL MCH 27.7 (27.0-33.0) pg MCHC 32.9 (31.0-35.0) g/dl RDW 12.3 (11.0-16.0) % Plt Count 229 (160-400) X10*3/uL MPV 11.1 (9.4-12.3) fL Immature Gran % (Auto) 0.4 (0.0-0.4) % Neut % (Auto) 64.0 (45-73) % Lymph % (Auto) 26.0 (20-40) % [place] % (Auto) 7.7 (2-11) % Eos % (Auto) 1.5 (0-4) % Baso % (Auto) 0.4 (0-2) % Lymph # (Auto) 2.1 (1.2-4.9) X10*3/uL [place] # (Auto) 0.6 (0.1-1.2) X10*3/uL Eos # (Auto) 0.1 (0.0-0.4) X10*3/uL Baso # (Auto) 0.0 (0.0-0.2) X10*3/uL Abs Immat Gran (auto) 0.03 (0.00-0.03) X10*3/uL Absolute Neuts (auto) 5.1 (2.0-8.3) x10*3/uL Absolute Nucleated RBC 0.000 (0.0-0.012) X10*3/uL Nucleated RBC % (auto) 0.0 (0.0-0.2) /100WBC Sodium (135-145) mmol/L Potassium (3.3-5.1) mmol/L Chloride (96-108) mmol/L Carbon Dioxide (22-29) mmol/L Anion Gap (12-20) BUN (9-16) mg/dL Creatinine (0.5-1.4) mg/dL Estim Creat Clear Calc Estimated GFR Random Glucose (60-115) mg/dL Calcium (8.4-10.2) mg/dL Total Bilirubin (0.0-1.0) mg/dL AST (5-31) U/L ALT (0-31) U/L Alkaline Phosphatase (39-117) U/L Total Protein (6.5-8.0) g/dL Albumin (3.5-5.0) g/dL Lipase (8-78) U/L Urine Color Yellow Urine Appearance Clear Urine pH 7.0 (5.0-9.0) Ur Specific [place] 1.015 (1.005-1.025) Urine Protein Negative (Neg-Trace) mg/dL Urine Glucose (UA) Negative (Negative) mg/dL Urine Ketones Negative (Negative) mg/dL Urine Blood Negative (Negative) Urine Nitrite Negative (Negative) Ur Leukocyte Esterase Trace H (Negative) Urine RBC 0-2 (0-2) /HPF Urine WBC 0-5 (0-5) /HPF Ur Squamous Epith Cells 0-2 (0-2) /HPF Urine Bacteria None Seen (None Seen) Hyaline Casts 0-2 (0-2) /LPF Urine Test NEGATIVE (NEGATIVE) 01/07/22 01/07/22 Range/Units 01:11 06:04 WBC 10.1 (4.8-10.8) X10*3/uL RBC 4.19 L (4.20-5.50) X10*6/uL Hgb 11.5 L (12.0-16.0) g/dl Hct 35.2 L (37.0-47.0) % MCV 84.0 (80.0-98.0) fL MCH 27.4 (27.0-33.0) pg MCHC 32.7 (31.0-35.0) g/dl RDW 12.3 (11.0-16.0) % Plt Count 201 (160-400) X10*3/uL MPV 11.4 (9.4-12.3) fL Immature Gran % (Auto) 0.3 (0.0-0.4) % Neut % (Auto) 72.4 (45-73) % Lymph % (Auto) 19.8 L (20-40) % [place] % (Auto) 6.3 (2-11) % Eos % (Auto) 0.8 (0-4) % Baso % (Auto) 0.4 (0-2) % Lymph # (Auto) 2.0 (1.2-4.9) X10*3/uL [place] # (Auto) 0.6 (0.1-1.2) X10*3/uL Eos # (Auto) 0.1 (0.0-0.4) X10*3/uL Baso # (Auto) 0.0 (0.0-0.2) X10*3/uL Abs Immat Gran (auto) 0.03 (0.00-0.03) X10*3/uL Absolute Neuts (auto) 7.3 (2.0-8.3) x10*3/uL Absolute Nucleated RBC 0.000 (0.0-0.012) X10*3/uL Nucleated RBC % (auto) 0.0 (0.0-0.2) /100WBC Sodium 140 (135-145) mmol/L Potassium 3.6 (3.3-5.1) mmol/L Chloride 105 (96-108) mmol/L Carbon Dioxide 24 (22-29) mmol/L Anion Gap 15 (12-20) BUN 12 (9-16) mg/dL Creatinine 0.85 (0.5-1.4) mg/dL Estim Creat Clear Calc 73.5 Estimated GFR > 60 Random Glucose 90 (60-115) mg/dL Calcium 9.4 (8.4-10.2) mg/dL Total Bilirubin 0.2 (0.0-1.0) mg/dL AST 14 (5-31) U/L ALT 10 (0-31) U/L Alkaline Phosphatase 60 (39-117) U/L Total Protein 7.9 (6.5-8.0) g/dL Albumin 4.4 (3.5-5.0) g/dL Lipase 42 (8-78) U/L Urine Color Urine Appearance Urine pH (5.0-9.0) Ur Specific [place] (1.005-1.025) Urine Protein (Neg-Trace) mg/dL Urine Glucose (UA) (Negative) mg/dL Urine Ketones (Negative) mg/dL Urine Blood (Negative) Urine Nitrite (Negative) Ur Leukocyte Esterase (Negative) Urine RBC (0-2) /HPF Urine WBC (0-5) /HPF Ur Squamous Epith Cells (0-2) /HPF Urine Bacteria (None Seen) Hyaline Casts (0-2) /LPF Urine Test (NEGATIVE) Imaging Data CT scan - abdomen: Attestation: I personally reviewed and interpreted this imaging study as follows: Radiologist's impression: 1.? Free fluid in the right adnexal region and cul-de-sac with hyperattenuating content within the fluid of the right adnexal region, likely representing blood products. Findings could be associated with a rupture hemorrhagic cyst, however evaluation is somewhat limited in the absence of IV contrast as the ovaries are not well delineated. Recommend correlation with a pelvic ultrasound. 2.? Nonobstructive bilateral renal calculi. 3.? Normal appendix. ? transvaginal pelvic ultrasound: Attestation: I personally reviewed and interpreted this imaging study as follows: Radiologist's impression: 1.? There is a 2.9 cm complex cyst in the right ovary with septations and internal debris favoring to represent a hemorrhagic cyst. There is a small amount of free fluid in the pelvis with blood products, possibly explained by rupture of this margin cyst. Recommend a follow-up pelvic ultrasound in 6-12 weeks to ensure resolution of these findings. 2.? No evidence of ovarian torsion at the moment of this examination. ? Discharge Plan Discharge Clinical Impression: Pelvic pain, Hemorrhagic cyst of right ovary Patient Disposition: Still a Patient Prescriptions: No Action polyethylene glycol 3350 [Miralax] 17 gram/dose powder 17 g PO DAILY PRN (Reason: laxative effect) Qty: 238 0RF magnesium citrate Solution 300 ml PO DAILY PRN (Reason: constipation) Qty: 296 2RF
[2022-01-07] MEDS: HYDROmorphone HCl 1 MG/ML SYRINGE IVPUSH ×2 (05:47→11:14)
--- NOTE | 2022-01-07 05:48 | PC.NURSE ---
pt medicated per mar.
[2022-01-07 06:18] LABS: MANUAL DIFF FLAG NO
[2022-01-07 06:20] LABS: Basophils Percent Auto 0.4 % (0-2); Eosinophils Absolute Auto 0.1 X10*3/uL (0.0-0.4); Eosinophils Percent Auto 0.8 % (0-4); Hematocrit 35.2 % (37.0-47.0); Hemoglobin 11.5 g/dl (12.0-16.0); Imm Gran Abs Auto 0.03 X10*3/uL (0.00-0.03); Imm Gran Pct Auto 0.3 % (0.0-0.4); Lymphocytes Percent Auto 19.8 % (20-40); Mean Corpuscular HGB Conc 32.7 g/dl (31.0-35.0); Mean Corpuscular Hemoglobin 27.4 pg (27.0-33.0); Mean Platelet Volume 11.4 fL (9.4-12.3); Monocytes Absolute Auto 0.6 X10*3/uL (0.1-1.2); Monocytes Percent Auto 6.3 % (2-11); Neutrophils Absolute Auto 7.3 x10*3/uL (2.0-8.3); Neutrophils Percent Auto 72.4 % (45-73); Platelet Count 201 X10*3/uL (160-400); Red Blood Count 4.19 X10*6/uL (4.20-5.50); Red Cell Distribution Width 12.3 % (11.0-16.0); White Blood Count 10.1 X10*3/uL (4.8-10.8)
--- NOTE | 2022-01-07 07:56 | P.CONOB_ITS ---
VEGETABLES COOK - CN: HPI Data of Consult Consult date: 01/07/22 Primary Care Provider: Unknown Physician Consult Narrative Narrative: I was consulted on Miranda Aguayo who is a 21 year old female presented emergency room after sudden onset of sharp pelvic pain an hour prior to presentation with no associated vaginal discharge or bleeding or any other GI or symptoms. In the emergency room, the patient requires IV narcotics to control her pain, last dose was 4 hours ago since then the patient has been pain free. The following workup was done in the emergency room: initial H&H was 13.3/40.4 repeated after 5 hours, and IV hydration dropped to 11.5/35.2. Chemistry and urine was negative. Urine test was negative. CT scan and pelvic Ultrasound showed small amount of complex fluid in the pelvis with blood products and a right 2.6 cm hemorrhagic cyst cc:: CC: OB [facility] Past Medical History Medical History No known health problems Social History Social History Alcohol intake: never Patient Tobacco Use Status: Never used Tobacco Use of substances other than those prescribed or required for medical reasons: No Advance Directives: No Advance Directives Information Provided: No Meds Allergies Allergy/AdvReac Type Severity Reaction Status Date / Time No Known Allergies Allergy Verified 05/13/20 12:09 [No Known Allergies*] VEGETABLES COOK Physical Exam Vitals Vital signs: Temp Pulse Resp BP Pulse Ox O2 Del Method 98.2 F 69 16 97/64 99 01/07/22 06:18 01/07/22 07:43 01/07/22 07:43 01/07/22 07:43 01/07/22 07:43 01/07/22 07:43 BMI result Body Mass Index 22.9 Abdomen Auscultation/Inspection/Palpation: Normal bowel sounds, Soft, Non-distended and No tenderness Female Genitalia (Pelvic) Bladder/Urethra: Normal meatus Vulva: No lesions Cervix: Grossly normal Uterus: Normal size Adnexa/Parametria: Adnexal Tenderness: None VEGETABLES COOK - Results Labs CBC & Chem 7: 01/07/22 12:10 01/07/22 01:11 Labs: Short CBC 01/07/22 01/07/22 Range/Units 01:11 06:04 WBC 7.9 10.1 (4.8-10.8) X10*3/uL Hgb 13.3 11.5 L (12.0-16.0) g/dl Hct 40.4 35.2 L (37.0-47.0) % Plt Count 229 201 (160-400) X10*3/uL BMP 01/07/22 01:11 Sodium 140 Potassium 3.6 Chloride 105 Carbon Dioxide 24 BUN 12 Creatinine 0.85 Calcium 9.4 Liver Function 01/07/22 Range/Units 01:11 Total Bilirubin 0.2 (0.0-1.0) mg/dL AST 14 (5-31) U/L ALT 10 (0-31) U/L Alkaline Phosphatase 60 (39-117) U/L Albumin 4.4 (3.5-5.0) g/dL Urine 01/07/22 01/07/22 Range/Units 01:05 01:05 Urine Color Yellow Urine Appearance Clear Urine pH 7.0 (5.0-9.0) Ur Specific [place] 1.015 (1.005-1.025) Urine Protein Negative (Neg-Trace) mg/dL Urine Glucose (UA) Negative (Negative) mg/dL Urine Test NEGATIVE (NEGATIVE) Imaging US - abdomen: Radiologist's impression: ITS Impressions Abdomen/Pelvis CT 01/07/22 04:09 IMPRESSION: 1. Free fluid in the right adnexal region and cul-de-sac with hyperattenuating content within the fluid of the right adnexal region, likely representing blood products. Findings could be associated with a rupture hemorrhagic cyst, however evaluation is somewhat limited in the absence of IV contrast as the ovaries are not well delineated. Recommend correlation with a pelvic ultrasound. 2. Nonobstructive bilateral renal calculi. 3. Normal appendix. Doppler Study Ultrasound 01/07/22 05:20 IMPRESSION: 1. There is a 2.9 cm complex cyst in the right ovary with septations and internal debris favoring to represent a hemorrhagic cyst. There is a small amount of free fluid in the pelvis with blood products, possibly explained by rupture of this margin cyst. Recommend a follow-up pelvic ultrasound in 6-12 weeks to ensure resolution of these findings. 2. No evidence of ovarian torsion at the moment of this examination. Pelvic/Transvag US 01/07/22 05:20 IMPRESSION: 1. There is a 2.9 cm complex cyst in the right ovary with septations and internal debris favoring to represent a hemorrhagic cyst. There is a small amount of free fluid in the pelvis with blood products, possibly explained by rupture of this margin cyst. Recommend a follow-up pelvic ultrasound in 6-12 weeks to ensure resolution of these findings. 2. No evidence of ovarian torsion at the moment of this examination. Assessment and Plan (1) Ruptured ovarian cyst: Status: Acute Discussed with the patient the clinical findings pointing towards stable ruptured ovarian cyst with small amount of blood in the pelvis; last 4 hours the patient has been pain free, abdominal exam is benign with no evidence tenderness no rebound or guarding; since H&H dropped over 5 hours, I Recommend the to keep the patient NPO for observation and repeat H&H 6 hours from the last one, if H&H is stable & the patient stays pain free without analgesic requirement, the patient can be discharged home to follow-up in the outpatient office within 2 weeks, and to repeat ultrasound within 3 months follow-up on the hemorrhagic ovarian cyst. Otherwise if the patient pain is requiring IV narcotics, or any drop in H&H will treat accordingly. If the patient ends up being discharge, the following discharge Instructions are to be given: to come back to the emergency room in case of fever above 100.4, persistence or recurrence of the pain, heavy vaginal bleeding, nausea or vomiting.
--- NOTE | 2022-01-07 08:00 | PC.NURSE ---
MD WILKS TO BEDSIDE FOR PELVIC EXAM, THIS RN CHAPERONING. PT NPO, CBC TO BE REDRAWN AT 1200H
[2022-01-07 12:14] LABS: MANUAL DIFF FLAG NO
[2022-01-07 12:19] LABS: Basophils Percent Auto 0.4 % (0-2); Eosinophils Absolute Auto 0.1 X10*3/uL (0.0-0.4); Eosinophils Percent Auto 1.1 % (0-4); Hematocrit 37.2 % (37.0-47.0); Hemoglobin 12.2 g/dl (12.0-16.0); Imm Gran Abs Auto 0.03 X10*3/uL (0.00-0.03); Imm Gran Pct Auto 0.4 % (0.0-0.4); Lymphocytes Absolute Auto 2.1 X10*3/uL (1.2-4.9); Lymphocytes Percent Auto 28.1 % (20-40); Mean Corpuscular HGB Conc 32.8 g/dl (31.0-35.0); Mean Corpuscular Hemoglobin 27.7 pg (27.0-33.0); Mean Corpuscular Volume 84.5 fL (80.0-98.0); Mean Platelet Volume 11.5 fL (9.4-12.3); Monocytes Absolute Auto 0.7 X10*3/uL (0.1-1.2); Monocytes Percent Auto 9.5 % (2-11); Neutrophils Absolute Auto 4.5 x10*3/uL (2.0-8.3); Neutrophils Percent Auto 60.5 % (45-73); Platelet Count 204 X10*3/uL (160-400); Red Cell Distribution Width 12.4 % (11.0-16.0); White Blood Count 7.4 X10*3/uL (4.8-10.8)
== END 2022-01-07 12:48 | disposition home or self-care (01) ==
PROVIDERS: Emergency Medicine; Emergency Provider Emergency Medicine
DX: N83.209 Unspecified ovarian cyst, unspecified side (principal); R10.2 Pelvic and perineal pain; Z79.899 Other long term (current) drug therapy
CPT/HCPCS: 36415; 74176; 76830; 76856; 80053; 81001; 81025; 83690; 85025; 93975; 96361; 96374; 96375; 96376; 99285; J1170; J1885; J2270

== ENCOUNTER 2023-06-15 17:08 | Emergency (ER) | payer OTHER, SELFPAY ==
[2023-06-15 18:05] VITALS: BP 120/60; PULSE 107; RESP 18; TEMP 37.2; O2SAT 100; BMI 20.3
--- NOTE | 2023-06-15 18:05 | ED.GENADULT ---
HPI - General Adult General Chief complaint: Nausea/Vomiting/Diarrhea Stated complaint: headache/vomiting Time Seen by Provider: 06/16/23 01:26 Source: patient Mode of arrival: ambulatory Limitations: no limitations History of Present Illness HPI narrative: Patient about 8 weeks been congested and vomiting since earlier today about 6-7 times feels body aches no other family member sick no abdominal pain no vaginal bleed no urinary complaints Related Data Previous Rx's ?Medication ?Instructions ?Recorded magnesium citrate 300 ml PO DAILY PRN constipation 05/07/20 #296 mL polyethylene glycol 3350 17 17 g PO DAILY PRN laxative effect 05/07/20 gram/dose oral powder (Miralax) #238 grams ibuprofen 600 mg tablet 600 mg PO Q6H PRN pain #30 tabs 01/07/22 oxycodone-acetaminophen 5 mg-325 1 tab PO TID PRN pain #5 tabs 01/07/22 mg tablet (Percocet) ondansetron 4 mg disintegrating 4 mg PO Q6-8H PRN nausea and 06/16/23 tablet vomiting #10 tabs Allergies Allergy/AdvReac Type Severity Reaction Status Date / Time No Known Allergies Allergy Verified 06/15/23 18:09 [No Known Allergies*] Review of Systems Review of Systems: Yes all other systems are reviewed and are negative PMFSH Past Medical History Medical History No known health problems Social History Social History Alcohol intake: never Patient Tobacco Use Status: Never used Tobacco Advance Directives: No Advance Directives Information Provided: No Physical Exam ED Vital Signs: Vital Signs - 24 hr 06/15/23 18:05 06/16/23 03:27 06/16/23 03:33 Temperature 99.0 F 98.0 F 98.0 F Pulse Rate 107 H 96 96 Respiratory Rate 18 16 16 Blood Pressure 120/60 105/61 105/61 Pulse Oximetry 100 98 Oxygen Delivery Method Room Air Room Air 06/16/23 03:34 Temperature 98.1 F Pulse Rate 96 Respiratory Rate 16 Blood Pressure 105/61 Pulse Oximetry 98 Oxygen Delivery Method Room Air BMI result Body Mass Index 20.3 Appearance: Alert. Oriented X3. No acute distress. ENT: Pharynx normal. Oral Mucosa moist, clear nasal discharge Neck: Normal inspection. Neck supple. CVS: Normal heart rate and rhythm. Pulses normal. Respiratory: No respiratory distress. Equal air entry bilateral, no wheezing/rales/rhonchi Skin: Skin warm and dry. Normal skin color. Normal skin turgor. Extremities: No lower extremity edema. Neuro: Oriented X 3. Course Course Course Narrative: RME- 23 year old female presents for evaluation of headache and nausea/vomiting. She reports that she is about 8 weeks . She sees her OB tomorrow. Plan for viral swabs, labs, UA. No lower abdominal/pelvic pain or vaginal bleeding, so will defer imaging at this time. Medications Administered Discontinued Medications Generic Name Dose Route Start Last Admin Trade Name Freq PRN Reason Stop Dose Admin Acetaminophen 650 mg 06/16/23 01:43 06/16/23 02:26 Acetaminophen 325 Mg Tablet PO 06/16/23 01:44 650 mg ONCE ONE Administration Ondansetron HCl 4 mg 06/16/23 01:43 06/16/23 02:27 Ondansetron Odt 4 Mg Tab.Rapdis TRANSLINGU 06/16/23 01:44 4 mg ONCE ONE Administration Medical Decision Making Medical Decision Making [facility] Narrative: Patient with COVID-19 positive 2 months will treat her symptomatically with Zofran for nausea alert no fever body aches patient felt better after sublingual Zofran able to drink fluids in the ER Lab Data [facility] Lab Attestation statement: I reviewed the patient's lab results. 06/15/23 18:22 06/15/23 18:22 Labs: Lab Results 06/15/23 Range/Units 18:22 WBC 4.3 L (4.8-10.8) X10*3/uL RBC 4.16 L (4.20-5.50) X10*6/uL Hgb 11.8 L (12.0-16.0) g/dl Hct 33.9 L (37.0-47.0) % MCV 81.5 (80.0-98.0) fL MCH 28.4 (27.0-33.0) pg MCHC 34.8 (31.0-35.0) g/dl RDW 12.2 (11.0-16.0) % Plt Count 166 (160-400) X10*3/uL MPV 11.6 (9.4-12.3) fL Immature Gran % (Auto) 0.5 H (0.0-0.4) % Neut % (Auto) 80.8 H (45-73) % Lymph % (Auto) 6.7 L (20-40) % [place] % (Auto) 11.6 H (2-11) % Eos % (Auto) 0.2 (0-4) % Baso % (Auto) 0.2 (0-2) % Lymph # (Auto) 0.3 L (1.2-4.9) X10*3/uL [place] # (Auto) 0.5 (0.1-1.2) X10*3/uL Eos # (Auto) 0.0 (0.0-0.4) X10*3/uL Baso # (Auto) 0.0 (0.0-0.2) X10*3/uL Abs Immat Gran (auto) 0.02 (0.00-0.03) X10*3/uL Absolute Neuts (auto) 3.5 (2.0-8.3) x10*3/uL Absolute Nucleated RBC 0.000 (0.0-0.012) X10*3/uL Nucleated RBC % (auto) 0.0 (0.0-0.2) /100WBC Sodium 135 (135-145) mmol/L Potassium 4.0 (3.3-5.1) mmol/L Chloride 104 (96-108) mmol/L Carbon Dioxide 22 (22-29) mmol/L Anion Gap 13 (12-20) BUN 4 L (9-16) mg/dL Creatinine 0.61 (0.5-1.4) mg/dL Estim Creat Clear Calc 92.6 Estimated GFR > 60 Random Glucose 97 (60-115) mg/dL Calcium 9.3 (8.4-10.2) mg/dL Total Bilirubin 0.2 (0.0-1.0) mg/dL AST 16 (5-31) U/L ALT 10 (0-31) U/L Alkaline Phosphatase 47 (39-117) U/L Total Protein 7.6 (6.5-8.0) g/dL Albumin 3.9 (3.5-5.0) g/dL Lipase 20 (8-78) U/L Beta HCG, Quant 496955 mIU/mL Urine Color Yellow Urine Appearance Clear Urine pH 7.0 (5.0-9.0) Ur Specific [place] 1.025 (1.005-1.025) Urine Protein Trace (Neg-Trace) mg/dL Urine Glucose (UA) Negative (Negative) mg/dL Urine Ketones 80 (Negative) mg/dL Urine Blood Negative (Negative) Urine Nitrite Negative (Negative) Ur Leukocyte Esterase Negative (Negative) Urine RBC 0-2 (0-2) /HPF Urine WBC 0-5 (0-5) /HPF Ur Squamous Epith Cells 0-2 (0-2) /HPF Urine Bacteria None Seen (None Seen) Hyaline Casts 0-2 (0-2) /LPF Influenza Type A (PCR) NEGATIVE (Negative) Influenza Type B (PCR) NEGATIVE (Negative) RSV RNA Qual (PCR) NEGATIVE (Negative) SARS-CoV-2 RNA (RT-PCR) POSITIVE A (Negative) Blood Type O Positive Discharge Plan Discharge Clinical Impression: COVID-19, Vomiting Patient Disposition: Home, Self-Care Instructions: Acute Nausea and Vomiting (ED), COVID-19 (Coronavirus Disease 2019) (ED) Additional Instructions: Drink plenty of fluids Medicine for nausea as prescribed Report to ER if not better Tylenol for body aches and fever Prescriptions: New ondansetron 4 mg tablet,disintegrating 4 mg PO Q6-8H PRN (Reason: nausea and vomiting) Qty: 10 0RF No Action polyethylene glycol 3350 [Miralax] 17 gram/dose powder 17 g PO DAILY PRN (Reason: laxative effect) Qty: 238 0RF magnesium citrate Solution 300 ml PO DAILY PRN (Reason: constipation) Qty: 296 2RF ibuprofen 600 mg tablet 600 mg PO Q6H PRN (Reason: pain) Qty: 30 0RF oxycodone-acetaminophen [Percocet] 5-325 mg tablet 1 tab PO TID PRN (Reason: pain) Qty: 5 0RF Rx Instructions: Partial Fill upon patient request. Interventions: ED Discharge Assessment Last Done: 06/16/23 03:34 Discharge Date/Time: 06/16/23 03:36 Print Language: Ukrainian
[2023-06-15 18:34] LABS: MANUAL DIFF FLAG NO
[2023-06-15 18:37] LABS: Basophils Percent Auto 0.2 % (0-2); Eosinophils Percent Auto 0.2 % (0-4); Hematocrit 33.9 % (37.0-47.0); Hemoglobin 11.8 g/dl (12.0-16.0); Imm Gran Abs Auto 0.02 X10*3/uL (0.00-0.03); Imm Gran Pct Auto 0.5 % (0.0-0.4); Lymphocytes Absolute Auto 0.3 X10*3/uL (1.2-4.9); Lymphocytes Percent Auto 6.7 % (20-40); Mean Corpuscular HGB Conc 34.8 g/dl (31.0-35.0); Mean Corpuscular Hemoglobin 28.4 pg (27.0-33.0); Mean Corpuscular Volume 81.5 fL (80.0-98.0); Mean Platelet Volume 11.6 fL (9.4-12.3); Monocytes Absolute Auto 0.5 X10*3/uL (0.1-1.2); Monocytes Percent Auto 11.6 % (2-11); Neutrophils Absolute Auto 3.5 x10*3/uL (2.0-8.3); Neutrophils Percent Auto 80.8 % (45-73); Platelet Count 166 X10*3/uL (160-400); Red Blood Count 4.16 X10*6/uL (4.20-5.50); Red Cell Distribution Width 12.2 % (11.0-16.0); White Blood Count 4.3 X10*3/uL (4.8-10.8)
[2023-06-15 18:38] LABS: Appearance Urine Clear; Color Urine Yellow; Glucose Urine UA Negative (Negative); Leukocyte Esterase Urine Negative (Negative); Nitrite Urine Negative (Negative); Specific Gravity - Urine 1.025 (1.005-1.025); Urine Blood Negative (Negative); Urine Ketones 80 mg/dL (Negative); Urine Protein Trace mg/dL (Neg-Trace)
[2023-06-15 18:40] LABS: Bacteria Urine None Seen (None Seen); Hyaline Casts Urine 0-2 /LPF (0-2); RBC Urine 0-2 /HPF (0-2); Squamous Epithelial Cell Urine 0-2 /HPF (0-2); WBC Urine 0-5 /HPF (0-5)
[2023-06-15 18:49] LABS: Alanine Aminotransferase 10 U/L (0-31); Albumin Level 3.9 g/dL (3.5-5.0); Alkaline Phosphatase 47 U/L (39-117); Anion Gap 13 (12-20); Aspartate Amino Transferase 16 U/L (5-31); Bilirubin Total 0.2 mg/dL (0.0-1.0); Blood Urea Nitrogen 4 mg/dL (9-16); Calcium 9.3 mg/dL (8.4-10.2); Carbon Dioxide 22 mmol/L (22-29); Chloride 104 mmol/L (96-108); Creatinine Clr Calc Pharmacy 92.6; Estimated Glomerular Filt Rate > 60; Glucose Random 97 mg/dL (60-115); Lipase 20 U/L (8-78); Sodium 135 mmol/L (135-145); Total Protein 7.6 g/dL (6.5-8.0)
[2023-06-15 19:15] LABS: Influenza A PCR NEGATIVE (Negative); Influenza B PCR NEGATIVE (Negative); Resp Syncy Virus RNA Qual PCR NEGATIVE (Negative); SARS COV2 PCR INHOUSE POSITIVE (Negative)
[2023-06-16] MEDS: Acetaminophen 325 MG TABLET 650 MG PO (02:26)
[2023-06-16] MEDS: Ondansetron ODT 4 MG TAB.RAPDIS TRANSLINGU (02:27)
[2023-06-16 03:27] VITALS: BP 105/61; PULSE 96; RESP 16; TEMP 36.7; O2SAT 98
[2023-06-16 03:33] VITALS: BP 105/61; PULSE 96; RESP 16; TEMP 36.7
[2023-06-16 03:34] VITALS: BP 105/61; PULSE 96; RESP 16; TEMP 36.7; O2SAT 98
== END 2023-06-16 03:36 | disposition home or self-care (01) ==
PROVIDERS: Physician Assistant; Emergency Provider Internal Medicine
DX: U07.1 COVID-19 (principal); R11.2 Nausea with vomiting, unspecified; Z79.899 Other long term (current) drug therapy
CPT/HCPCS: 0241U; 36415; 80053; 81001; 83690; 84702; 85025; 86900; 86901; 99283; 99284

== ENCOUNTER 2024-03-05 04:49 | Emergency (ER) | payer OTHER, SELFPAY ==
--- NOTE | ~2024-03-05 | CT_ITS ---
CLINICAL HISTORY: right flank pain, eval for renal colic appy sylvia CT abdomen and pelvis without contrast Comparison: 01/07/2022 Findings: No consolidation or effusion. Unremarkable gallbladder and solid organs. There are bilateral renal parenchymal calculi. There is marked right hydroureteronephrosis secondary to a 4.5 mm distal right ureteral calculus. No bowel obstruction, pneumoperitoneum, or pneumatosis. Pelvic contents unremarkable. No acute fracture. IMPRESSION: Marked right hydroureteronephrosis secondary to a 4.5 mm distal ureteral calculus This document has been electronically signed by: Abdiaziz Griffith MD on 03/05/2024 09:38:43
[2024-03-05 05:02] VITALS: BP 144/83; PULSE 71; RESP 16; TEMP 36.9; O2SAT 99; BMI 23.0
[2024-03-05 05:58] LABS: MANUAL DIFF FLAG NO
[2024-03-05 05:59] LABS: Basophils Percent Auto 0.6 % (0-2); Eosinophils Absolute Auto 0.1 X10*3/uL (0.0-0.4); Eosinophils Percent Auto 2.4 % (0-4); Hematocrit 38.3 % (37.0-47.0); Hemoglobin 12.3 g/dl (12.0-16.0); Imm Gran Abs Auto 0.02 X10*3/uL (0.00-0.03); Imm Gran Pct Auto 0.4 % (0.0-0.4); Lymphocytes Absolute Auto 1.9 X10*3/uL (1.2-4.9); Lymphocytes Percent Auto 35.2 % (20-40); Mean Corpuscular HGB Conc 32.1 g/dl (31.0-35.0); Mean Corpuscular Hemoglobin 25.3 pg (27.0-33.0); Mean Corpuscular Volume 78.8 fL (80.0-98.0); Monocytes Absolute Auto 0.5 X10*3/uL (0.1-1.2); Monocytes Percent Auto 8.6 % (2-11); Neutrophils Absolute Auto 2.9 x10*3/uL (2.0-8.3); Neutrophils Percent Auto 52.8 % (45-73); Platelet Count 238 X10*3/uL (160-400); Red Blood Count 4.86 X10*6/uL (4.20-5.50); Red Cell Distribution Width 16.2 % (11.0-16.0); White Blood Count 5.5 X10*3/uL (4.8-10.8)
[2024-03-05 06:04] LABS: Appearance Urine Clear; Color Urine Yellow; Glucose Urine UA Negative (Negative); Leukocyte Esterase Urine Small (1+) (Negative); Nitrite Urine Negative (Negative); PH 6.5 (5.0-9.0); Specific Gravity - Urine 1.025 (1.005-1.025); UMIC TRIGGER UACC YES; Urine Blood Negative (Negative); Urine Ketones Negative (Negative); Urine Protein 300 (3+) mg/dL (Neg-Trace)
[2024-03-05 06:07] LABS: Bacteria Urine None Seen (None Seen); Hyaline Casts Urine 0-2 /LPF (0-2); RBC Urine 0-2 /HPF (0-2); UACC Culture Trigger YES; WBC Urine 21-50 /HPF (0-5)
[2024-03-05 06:15] LABS: Albumin Level 4.2 g/dL (3.5-5.0); Alkaline Phosphatase 100 U/L (39-117); Anion Gap 13 (12-20); Aspartate Amino Transferase 41 U/L (5-31); Bilirubin Total 0.2 mg/dL (0.0-1.0); Blood Urea Nitrogen 13 mg/dL (9-16); Calcium 9.2 mg/dL (8.4-10.2); Carbon Dioxide 21 mmol/L (22-29); Chloride 111 mmol/L (96-108); Creatinine Clr Calc Pharmacy 76.2; Estimated Glomerular Filt Rate > 60; Glucose Random 101 mg/dL (60-115); Lipase 35 U/L (8-78); Potassium 4.2 mmol/L (3.3-5.1); Sodium 141 mmol/L (135-145); Total Protein 8.1 g/dL (6.5-8.0)
[2024-03-05 06:33] LABS: Alanine Aminotransferase 53 U/L (0-31)
--- NOTE | 2024-03-05 08:03 | ED.ABDPAIN ---
HPI - Abdominal Pain General Chief Complaint: Abdominal Pain Stated Complaint: middle right side abd pain Time Seen by Provider: 03/05/24 07:51 Source: patient Mode of arrival: ambulatory Limitations: no limitations History of Present Illness ED Provider: Yris Rocha aPRN HPI narrative: 24-year-old female with no known medical history presents to the ER, complaints of right-sided back pain since 02:00. Patient denies any known injury or trauma. No abdominal pain. No vomiting, diarrhea, fevers, chills, urinary symptoms, vaginal discharge. Patient is 2 months . She did have a vaginal delivery which was uneventful. She denies any surgical history Related Data Previous Rx's ?Medication ?Instructions ?Recorded magnesium citrate 300 ml PO DAILY PRN constipation 05/07/20 #296 mL polyethylene glycol 3350 17 17 g PO DAILY PRN laxative effect 05/07/20 gram/dose oral powder (Miralax) #238 grams ibuprofen 600 mg tablet 600 mg PO Q6H PRN pain #30 tabs 01/07/22 oxycodone-acetaminophen 5 mg-325 1 tab PO TID PRN pain #5 tabs 01/07/22 mg tablet (Percocet) ondansetron 4 mg disintegrating 4 mg PO Q6-8H PRN nausea and 06/16/23 tablet vomiting #10 tabs ibuprofen 400 mg tablet 400 mg PO Q6H PRN pain #30 tabs 03/05/24 oxycodone 5 mg tablet 5 mg PO Q8H PRN pain #6 tabs 03/05/24 prednisone 20 mg tablet 20 mg PO DAILY #7 tabs 03/05/24 tamsulosin 0.4 mg capsule (Flomax) 0.4 mg PO DAILY #30 caps 03/05/24 Allergies Allergy/AdvReac Type Severity Reaction Status Date / Time No Known Allergies Allergy Verified 03/05/24 05:04 [No Known Allergies*] Review of Systems Review of Systems Yes all other systems are reviewed and are negative Constitutional: Reports no additional constitutional complaints, Denies body ache(s), Denies chills, Denies fever(s), Denies headache(s) and Denies weakness Eyes: Reports no additional eye complaints and Denies change in vision Reports system reviewed and no additional complaints, except as documented, Denies dizziness, Denies headache(s), Denies nasal congestion, Denies nasal discharge and Denies neck pain Cardiovascular: Reports no additional cardiovascular complaints, Denies chest pain, Denies leg edema and Denies dyspnea Respiratory: Reports no additional respiratory complaints, Denies cough and Denies dyspnea Gastrointestinal: Reports no additional gastrointestinal complaints, Denies abdominal pain, Denies diarrhea, Denies nausea and Denies vomiting Genitourinary: Reports no additional female genitourinary complaints and Denies urinary incontinence Musculoskeletal: Reports no additional musculoskeletal complaints, Reports back pain, Denies arthralgias, Denies joint swelling, Denies neck pain, Denies numbness and Denies tingling Skin/Breast: Reports system reviewed and no additional complaints, except as docu and Denies rash Reports system reviewed and no additional complaints, except as documented, Denies Abnormal speech present, Denies dizziness, Denies headache(s), Denies numbness, Denies tingling and Denies weakness PMFSH Past Medical History Attestation statement: The following information was validated with the patient. Source: old records reviewed and nursing notes reviewed Medical History No known health problems Social History Social History Alcohol intake: never Patient Tobacco Use Status: Never used Tobacco Smoked in Last 30 Days: No Use of substances other than those prescribed or required for medical reasons: No Advance Directives: No Advance Directives Information Provided: Yes Do you have a plan to hurt others: No Plan Patient : No Physical Exam ED Vital Signs: Vital Signs - 24 hr 03/05/24 05:02 03/05/24 08:28 Temperature 98.5 F Pulse Rate 71 63 Respiratory Rate 16 18 Blood Pressure 144/83 H 117/76 Pulse Oximetry 99 98 Oxygen Delivery Method Room Air Room Air BMI result Body Mass Index 23.0 Const General: cooperative, healthy appearing, comfortable and no acute distress Orientation/consciousness: patient oriented x3 Limitations: no limitations HENMT Head: Yes normal to inspection Ears: hearing grossly normal bilaterally General nose exam: Normal external nose present Face and sinus: Yes normal facial exam Mouth: Normal oral and palatal mucosa present Throat: Yes posterior oropharynx normal Eyes General: appearance normal, both eyes and all related structures Pupils: Equal, round and reactive pupils present Neck Neck: Yes normal visual inspection Chest Chest palpation & inspection: normal inspection of the chest Resp Effort & Inspection: normal respiratory effort Auscultation: clear to auscultation bilaterally Cardio Rate: regular rate Rhythm: regular rhythm Peripheral pulses: Peripheral pulses 2+ throughout GI Inspection: Yes normal to inspection Palpation (GI): Soft to palpation and nontender Auscultation: normal bowel sounds Back/Spine/Pelvis Other: Tenderness to right lumbar soft tissue muscle and right flank as well as TTP to RUQ. Worsened with flexion or extension of the spine. Palpable muscle spasm Thoracic/Lumbar Spine: thoracic and lumbar spine normal to inspection Skin General skin exam: no rashes or lesions noted Neuro General: patient oriented x3, moves all extremities, no focal motor deficits and normal sensation to monofilament Cranial nerves: Yes CN's II-XII intact bilaterally, Yes Equal, round and reactive pupils present, Yes Bilaterally intact EOM present, Yes Nystagmus not present, Yes Normal facial strength present and Yes Midline tongue present Cognition (Neuro): normal cognition Speech: No Abnormal speech present Gait exam (Neuro): Normal gait present Motor exam (neuro): 5/5 motor strength present throughout Sensory Exam: Normal double simultaneous stimulation for sensation Deep tendon reflexes (DTR's): Right patellar reflex intensity grade: 2+ and Left patellar reflex intensity grade: 2+ Extrem General: Yes normal to inspection Course Course Course Narrative: 1000-CT scan shows marked right hydroureter nephrosis with a distal 4.5 mm stone. Normal kidney function. No leukocytosis. UA shows 21-50 wbc with no nitrites and epithelial cells. ?contamination. Patient with no UTI symptoms. Will send culture. Patient is pain-free and tolerating p.o.. She is motivated for discharge as she has a 2-month-old child at home. See d/w with urology. Reviewed worrisome signs and symptoms with the patient when to return to the emergency room. Comfortable plan for discharge home Medical Decision Making Medical Decision Making MDM Narrative: 24-year-old female with no known medical history presents to the ER, complaints of right-sided back pain since 02:00. Patient denies any known injury or trauma. No abdominal pain. No vomiting, diarrhea, fevers, chills, urinary symptoms, vaginal discharge. Patient is 2 months . She did have a vaginal delivery which was uneventful. She denies any surgical history Tenderness to right lumbar soft tissue muscle and right flank as well as TTP to RUQ. Worsened with flexion or extension of the spine. Palpable muscle spasm. Normal neuro exam with no focal deficits. Vitals stable May be more muscular but as the patient has tenderness to the abdomen and flank area I will do a CT of the abdomen and pelvis. Will also obtain labs and urine testing Differential Diagnosis Differential Diagnoses: The differential diagnosis associated with the presentation includes Musculoskeletal back pain, renal colic, pyelonephritis, cholecystitis, appendicitis Low suspicion for ovarian torsion, epidural abscess, malignancy, cord compression, cauda equina Admission/Observation Consideration of admission/observation: Escalation of care including admission/observation considered See course of care Consult Healthcare Provider Management of the patient was discussed with: [employer] Spoke to Urology. Recommend discharge home with Flomax, prednisone and follow up outpatient in the office ([place]) Lab Data MDM Lab Attestation statement: I reviewed the patient's lab results. 03/05/24 05:54 03/05/24 05:54 Labs: Lab Results 03/05/24 03/05/24 Range/Units 05:54 05:59 WBC 5.5 (4.8-10.8) X10*3/uL RBC 4.86 (4.20-5.50) X10*6/uL Hgb 12.3 (12.0-16.0) g/dl Hct 38.3 (37.0-47.0) % MCV 78.8 L (80.0-98.0) fL MCH 25.3 L (27.0-33.0) pg MCHC 32.1 (31.0-35.0) g/dl RDW 16.2 H (11.0-16.0) % Plt Count 238 D (160-400) X10*3/uL MPV 11.0 (9.4-12.3) fL Immature Gran % (Auto) 0.4 (0.0-0.4) % Neut % (Auto) 52.8 (45-73) % Lymph % (Auto) 35.2 (20-40) % [place] % (Auto) 8.6 (2-11) % Eos % (Auto) 2.4 (0-4) % Baso % (Auto) 0.6 (0-2) % Lymph # (Auto) 1.9 (1.2-4.9) X10*3/uL [place] # (Auto) 0.5 (0.1-1.2) X10*3/uL Eos # (Auto) 0.1 (0.0-0.4) X10*3/uL Baso # (Auto) 0.0 (0.0-0.2) X10*3/uL Abs Immat Gran (auto) 0.02 (0.00-0.03) X10*3/uL Absolute Neuts (auto) 2.9 (2.0-8.3) x10*3/uL Absolute Nucleated RBC 0.000 (0.0-0.012) X10*3/uL Nucleated RBC % (auto) 0.0 (0.0-0.2) /100WBC Sodium 141 (135-145) mmol/L Potassium 4.2 (3.3-5.1) mmol/L Chloride 111 H (96-108) mmol/L Carbon Dioxide 21 L (22-29) mmol/L Anion Gap 13 (12-20) BUN 13 (9-16) mg/dL Creatinine 0.80 (0.5-1.4) mg/dL Estim Creat Clear Calc 76.2 Estimated GFR > 60 Random Glucose 101 (60-115) mg/dL Calcium 9.2 (8.4-10.2) mg/dL Total Bilirubin 0.2 (0.0-1.0) mg/dL AST 41 H (5-31) U/L ALT 53 H (0-31) U/L Alkaline Phosphatase 100 (39-117) U/L Total Protein 8.1 H (6.5-8.0) g/dL Albumin 4.2 (3.5-5.0) g/dL Lipase 35 (8-78) U/L Beta-Hydroxybutyrate Cancelled Beta HCG, Quant < 2 mIU/mL Urine Color Yellow Urine Appearance Clear Urine pH 6.5 (5.0-9.0) Ur Specific [place] 1.025 (1.005-1.025) Urine Protein 300 (3+) H (Neg-Trace) mg/dL Urine Glucose (UA) Negative (Negative) mg/dL Urine Ketones Negative (Negative) mg/dL Urine Blood Negative (Negative) Urine Nitrite Negative (Negative) Ur Leukocyte Esterase Small (1+) H (Negative) Urine RBC 0-2 (0-2) /HPF Urine WBC 21-50 H (0-5) /HPF Ur Squamous Epith Cells 3-5 (0-2) /HPF Urine Bacteria None Seen (None Seen) Hyaline Casts 0-2 (0-2) /LPF Urine Test NEGATIVE (NEGATIVE) Independent Interpretation I performed an independent interpretation of an: CT Scan Interpretation: I independently viewed the CT scan agree with the radiology report Radiology Impression Discussion of test interpretation with radiology: I have reviewed the radiologist's reading. Radiologist Impression: [address] [address] [address] Scan Report Signed Patient: Miranda Purdy MR#: [id number] : 2000 Acct:[id number] Age/Sex: 24 / F ADM Date: 03/05/24 Loc: .ED Attending Dr: Ordering Physician: Yris Rocha NP Date of Service: 03/05/24 Procedure(s): CT abdomen pelvis wo IV con Accession Number(s): [id number] cc: Yris Rocha NP; Physician,Unknown ~ Report Number: [id number]: Total DLP = 312.00 mGy-cm CLINICAL HISTORY: right flank pain, eval for renal colic appy sylvia CT abdomen and pelvis without contrast Comparison: 01/07/2022 Findings: No consolidation or effusion. Unremarkable gallbladder and solid organs. There are bilateral renal parenchymal calculi. There is marked right hydroureteronephrosis secondary to a 4.5 mm distal right ureteral calculus. No bowel obstruction, pneumoperitoneum, or pneumatosis. Pelvic contents unremarkable. No acute fracture. IMPRESSION: Marked right hydroureteronephrosis secondary to a 4.5 mm distal ureteral calculus This document has been electron Medications Administered Discontinued Medications Generic Name Dose Route Start Last Admin Trade Name Freq PRN Reason Stop Dose Admin Ketorolac Tromethamine 15 mg 03/05/24 08:02 03/05/24 08:22 Ketorolac Tromethamine 15 Mg/Ml Vial IVPUSH 03/05/24 08:03 15 mg ONCE ONE Administration Morphine Sulfate 2 mg 03/05/24 08:02 03/05/24 08:22 Morphine Sulfate 2 Mg/Ml Cartridge IVPUSH 03/05/24 08:03 2 mg ONCE ONE Administration Protocol Ondansetron HCl 4 mg 03/05/24 08:02 03/05/24 08:22 Ondansetron Hcl 4 Mg/2 Ml Vial IVPUSH 03/05/24 08:03 4 mg ONCE ONE Administration Discharge Plan Discharge Clinical Impression: Calculus of kidney Patient Disposition: Home, Self-Care Instructions: Kidney Stones (ED) Additional Instructions: Take medications as prescribed Return to the emergency room for fever, vomiting or intractable pain Call urology tomorrow to follow up Prescriptions: New prednisone 20 mg tablet 20 mg PO DAILY Qty: 7 0RF tamsulosin [Flomax] 0.4 mg capsule 0.4 mg PO DAILY Qty: 30 0RF oxycodone 5 mg tablet 5 mg PO Q8H PRN (Reason: pain) Qty: 6 0RF Rx Instructions: Partial Fill upon patient request. ibuprofen 400 mg tablet 400 mg PO Q6H PRN (Reason: pain) Qty: 30 0RF No Action polyethylene glycol 3350 [Miralax] 17 gram/dose powder 17 g PO DAILY PRN (Reason: laxative effect) Qty: 238 0RF magnesium citrate Solution 300 ml PO DAILY PRN (Reason: constipation) Qty: 296 2RF ibuprofen 600 mg tablet 600 mg PO Q6H PRN (Reason: pain) Qty: 30 0RF oxycodone-acetaminophen [Percocet] 5-325 mg tablet 1 tab PO TID PRN (Reason: pain) Qty: 5 0RF Rx Instructions: Partial Fill upon patient request. ondansetron 4 mg tablet,disintegrating 4 mg PO Q6-8H PRN (Reason: nausea and vomiting) Qty: 10 0RF Referrals: Nehemiah Easton MD [Physician] - 2 days Print Language: Spanish
[2024-03-05 08:22] LABS: UPreg QC Valid YES; Urine Pregnancy NEGATIVE (NEGATIVE)
[2024-03-05] MEDS: Morphine Sulfate 2 MG/ML CARTRIDGE IVPUSH (08:22)
[2024-03-05] MEDS: Ketorolac Tromethamine 15 MG/ML VIAL IVPUSH (08:22)
[2024-03-05] MEDS: ondansetron HCL 4 MG/2 ML VIAL IVPUSH (08:22)
[2024-03-05 08:28] VITALS: BP 117/76; PULSE 63; RESP 18; O2SAT 98
[2024-03-05 08:48] LABS: HCG Quantitative < 2 mIU/mL
[2024-03-05 10:36] VITALS: BP 93/50; PULSE 63; RESP 16; TEMP 36.8; O2SAT 98
== END 2024-03-05 10:36 | disposition home or self-care (01) ==
PROVIDERS: Nurse Practitioner Family; Emergency Provider Emergency Medicine
DX: N20.0 Calculus of kidney (principal); R10.2 Pelvic and perineal pain; M54.50 Low back pain, unspecified; Z79.899 Other long term (current) drug therapy
CPT/HCPCS: 36415; 74176; 80053; 81001; 81025; 83690; 84702; 85025; 87086; 96374; 96375; 99284; J1885; J2270; J2405

== ENCOUNTER → 2024-03-05 08:01 | Outpatient (BNV) | payer OTHER, SELFPAY | PROVIDERS: Emergency Provider Emergency Medicine; Visit Provider Specialist | DX: N13.2 Hydronephrosis with renal and ureteral calculous obstruction (principal) | CPT/HCPCS: 74176 ==

== ENCOUNTER → 2024-03-24 14:21 | Outpatient (BNVA) | payer OTHER, SELFPAY | PROVIDERS: Visit Provider Urology | DX: N20.0 Calculus of kidney (principal); N20.1 Calculus of ureter | CPT/HCPCS: 51798; 81003; 99202 ==

== ENCOUNTER 2024-03-29 15:35 | Day surgery (SDC) | payer OTHER, SELFPAY ==
--- NOTE | ~2024-03-29 | FL_ITS ---
EXAMINATION: FL GUIDANCE ONLY HISTORY: Right ureteral stone COMPARISON: Correlation is made with an unenhanced CT of the abdomen and pelvis dated 03/05/2024. TECHNIQUE: Fluoroscopy time: 21.5 seconds. Cumulative Dose: 3.42 mGy. Images: 2. FINDINGS: Images demonstrate placement of a right nephroureteral stent. FL/FL guidance in OR IMPRESSION: Fluoroscopy during procedure. Please see procedure report for additional information. Electronically signed by: Rhett Tovar MD 03/30/2024 08:18 AM JACOB
[2024-03-29 16:00] VITALS: BP 113/75; PULSE 77; RESP 16; TEMP 36.8; O2SAT 100; BMI 21.9
[2024-03-29 16:08] LABS: UPreg QC Valid YES; Urine Pregnancy NEGATIVE (NEGATIVE)
--- NOTE | 2024-03-29 16:24 | MHC.SHP ---
Pre-Procedural Eval Section A - 24 Hr Update-Section A only Date of Service: 03/29/24 The patient is an INPATIENT: No Changes since office visit: No Cold of Flu in the past 2 weeks, No New Medical Problems, No Changes in Medication and No Patient answered all questions The patient has been examined within 24 hours of the surgical procedure. The History & Physical has been completed within 30 days and I have reviewed it.: Yes Section B - Complete if H&P > 30 days Chief Complaint: Calculus of ureter Details of Present Illness: Distal right ureteric stone. Plan for cystoscopy, right retrograde, ureteroscopy with laser lithotripsy. Allergies: Allergies Allergy/AdvReac Type Severity Reaction Status Date / Time No Known Allergies Allergy Verified 03/29/24 15:58 [No Known Allergies*] Review of Systems Sugical H&P ROS: Negative: Constitution, Cardiovascular, Respiratory, Neurological, Psychiatric, Hem-Onc, Allergic/Immunologic, Gastrointestinal, Genitourinary, Musculoskeletal, Integumentary, Endocrine and Eyes/Ears/Nose/Throat Exam Surgical H&P Exam: Normal: HEENT, Normal: Heart, Normal: Lungs, Normal: Extremities, Normal: Abdomen, Normal: Skin and Normal: Neurological Plan Diagnosis/Plan: Unchanged I have reviewed the history and physical and performed a pertinent physical examination on my patient. No changes have occurred unless specified. Time Spent With Patient Time: Total time managing care of this patient today ____ minutes.
[2024-03-29] MEDS: levoFLOXacin 500 MG TABLET PO (16:34)
--- NOTE | 2024-03-29 16:51 | HO.ANESPROP2 ---
[facility] Active Problems Active Problems: All Active Problems Ureteric stone (Acute) Ruptured ovarian cyst (Acute) COVID-19 (Acute) Past Medical History Medical History (Updated 03/24/24 @ 14:54 by Nehemiah Easton MD) No known health problems Family History Family history of problems with anesthesia: No Surgical History Surgical History (Updated 03/29/24 @ 15:56 by Dominique Riggins RN) H/O endoscopy History of Problems with Anesthesia: No Social History Social History Are you a primary healthcare administration internship to a significant other at home: No Do you presently have visiting nurse or other home services: No Alcohol intake: never Patient Tobacco Use Status: Never used Tobacco Use of substances other than those prescribed or required for medical reasons: Yes Substance Use Frequency: Occasionally Have you been hit, kicked, punched, or otherwise hurt by someone within the past year? If so, by whom?: No Are you DNR?: No Advance Directives: No Advance Directives Information Provided: No Advance Directives on File: No Recently lost weight without trying: No How much weight loss: Not applicable Eating poorly because of decreased appetite: No Nutrition screen score: 0 Nutrition Risks: No Nutritional Risk Patient : No : No Poor oral hygiene: No Meds Allergies Allergy/AdvReac Type Severity Reaction Status Date / Time No Known Allergies Allergy Verified 03/29/24 15:58 [No Known Allergies*] Exam Height,Weight and Vital Signs: Height 4 ft 10 in Weight 47.536 kg Last Vital Signs Temp 98.3 F 03/29/24 16:00 Pulse 77 03/29/24 16:00 Resp 16 03/29/24 16:00 BP 113/75 03/29/24 16:00 Pulse Ox 100 03/29/24 16:00 O2 Del Method Room Air 03/29/24 16:00 Pertinent Lab Results Pertinent Lab Results: Laboratory Tests 03/29/24 15:46 Urine Test NEGATIVE Airway Mallampati Class: II TM Dist: >3cm Neck ROM: Full Assessment and Plan Assessment Anesthesia Assessment: Anesthesia Plan Discussed and Chart Reviewed Final Anesthetic Review Family History of Problems with Anesthesia: No History of Problems with Anesthesia: No NPO: Yes ASA Class: II Final Preanesthetic Review: No Changes in Pt Med Stat, Meds/Allgs Chart Reviewed, Consent Obtained/Reviewed, Anes Risks/Benef Reviewed and DNR Form (If Appl.) Patient Risk: Low Procedure Risk: Low Anesthetic Plan Anesthetic Plan: GA Disposition: Standard PACU
--- OUTSIDE RECORDS SUMMARY | 2024-03-29 17:27 | XMS_ITS | Clinical Summary ---
Author Organization [facility] [address] [place] [address] [address] [place] [phone] Phone Care Team Providers Care Production Grader Name Role Phone Ignacio De Souza MD Primary Care Provider [phone] Allergies No known active allergies Medications Medication Sig Dispensed Refills Start Date End Date Status Vitamin iron fum-folic acid 27-0.8 mg per tablet Take 1 tablet by mouth 1 (one) time each day. 06/16/2023 Active ibuprofen (ADVIL,MOTRIN) 800 mg tablet Take 1 tablet (800 mg total) by mouth every 8 (eight) hours if needed for moderate pain. 90 tablet 01/01/2024 Active levonorgestreL (PLAN B) 1.5 mg tabletIndications:Un protected sex Take 1 tablet (1.5 mg total) by mouth 1 (one) time for 1 dose. 1 tablet 02/11/2024 Active norethindrone-ethiny l estradiol (NECON) 0.5-35 mg-mcg per tablet Take 1 tablet by mouth 1 (one) time each day. 28 tablet 2 02/11/2024 Active Active Problems Problem Noted Date Diagnosed Date Constipation in in first trimester Overview (11/30/2023): Using Miralax. List of other alternative constipation medications that are safe to take in given. Last Assessment & Plan: Continue water, Miralax prn Hemorrhoids 06/14/2020 Overview (11/30/2023): Follows with gastroenterology at [facility] Costochondritis, acute 03/10/2018 Overview (11/30/2023): 03-09-18 seen [facility] ER. EKG NEG Arthritis of right ankle 04/30/2017 Overview (11/30/2023): Onset mid April 2017; no trauma Lyme Ab +, Western Blot negative Xrays negative Strep antibodies +, treated with keflex IGNACIO +, additional rheum labs sent and referred to Dr Lehman, [place] [facility], apt 05/04/17 HLA B-27 Ag + 12/[address] Lehman Changed to Methotrexate and folic acid FU 2 months Left foot pain 12/16/2016 Overview (11/30/2023): 12/01/16 [facility] : chronic, after injury , also ankle. X ray Nl. PT FU 2 M PT made pain worse acc to pt 04/18 - report of bilat swelling of feet/ankles and worsening pain CBC, ESR nl; Lyme Ab +, Western Blot neg IGNACIO + 1:640, speckled pattern RhF neg, uric acid nl ASO + (230) Resolved Problems Problem Noted Date Diagnosed Date Resolved Date Encounter for supervision of normal intrauterine in multigravida, antepartum 01/24/2024 02/11/2024 Overview (01/24/2024): 2023 1. [facility] site: [address] 2. Delivery site: [facility] 3. Mobile Mommas: 4. Dating criteria: LMP only 5. Blood type: Lab Results Component Value Date BLDTYPE O POSITIVE 06/25/2023 6. Genetic screening: Date: Result: 6. GBS: Date: 12/10/2023 7. FOB name: Aquilino Tesfaye 8. Plans A. Epidural or other pain management - B. Labor support identified - C. Tdap - Declined, Flu - Date: Declined D. Breast or Bottle feed: breast E. Baby's name - F. Circumcision - 9. Hospital Course: Labor and delivery, indication for care 12/31/2023 02/11/2024 Elevated glucose tolerance test 11/30/2023 02/11/2024 Anemia in 10/28/2023 02/11/20 Overview (01/24/2024): Iron supplement Lab Results Component Value Date HGB 10.1 10/22/2023 HGB 11.9 06/25/2023 Maternal varicella, non-immune 06/28/2023 02/11/2024 Overview (11/30/2023): Vaccinate PP Last Assessment & Plan: Vaccinate PP Nausea and vomiting in 06/25/2023 02/11/2024 Overview (11/30/2023): Using promethazine, and zofran with good effect. Last Assessment & Plan: Improved, prn phenergan Encounters Date Type Department Care Team Description 02/11/2024 3:15 PM EST Visit Obstetrics and Gynecology - [address] [phone] Sussy Chase CNM state (Primary Dx); Breast feeding status of mother; Unprotected sex; control counseling 01/24/2024 Telephone Obstetrics and Gynecology - [address] [phone] Sussy Chase CNM Letter for School/Work 01/02/[address] [facility] Nurs[facility] [address] [place] [address] 12/31/2023 4:52 AM EDT - 01/01/2024 2:05 PM EDT Hospital Encounter [facility] - Maternity [address] [place] [id number] Brian Kovacs MD Discharge Disposition: Home or Self Care from Last 3 Months Immunizations Name Administration Dates Next Due DTaP (Infanrix) 6wks to less than 7yo ,09/06/2002,11/02/2001,06/21,2000 [id number] (Pentacel) 2mo to less than 5yo 12/31/2001,2000,2000 HPV, Quadrivalent 02/13/2013,09/21/2011,07/20/19 12 Hepatitis B Pediatric (Enger ix B; Recombivax HB) to less than 20 yo 12/31/2001,2000,2000 IPV Inactivated polio (Ipol) 6wks and older 02/04/2004,2000,2000,04/22 Influenza Quadravalent, MDCK , 0.5ml, preservative free (Flucelvax) 6mo and older 01/10/2019 Influenza trivalent, 0.5mL, preservative free (Fluarix; FluLaval; Fluzone) ages 6mo and older (Afluria) 3 years and older 12/14/2015,03/14/2014 Influenza trivalent, with pr eservative (Fluzone; Afluria) 6mo and older 02/13/2013,02/11/2010,12/05/2008,12/08 MMR, measles mumps and rubel la Live (Priorix; M-M-R II) 12mo and older 02/04/2004,06/02/2001 Meningococcal MCV4P 03/27/2016,02/13/2013 PPD Test 10/10/2018,07/03/2009 Pneumococcal Conjugate Vacci ne, 7 Valent 12/01/2002 Tdap Tetanus diptheria acell ular pertussis (Boostrix; Adacel) 7yo and older 07/20/2011 Varicella live (Varivax) 12m o and older 08/25/2007,06/02/2001 Surgical History Surgery Date Site/Laterality Comments OTHER SURGICAL HISTORY PROCEDURE: DENIES PREVIOUS SURGERY Medical History Medical History Date Comments Left foot pain 12/16/2016 DX:Left foot tere n; COMMENT: 12/01/16 [facility] : chronic, after injury , also ankle. X ray Nl. PT FU 2 M PT made pain worse acc to pt 04/18 - report of bilat swelling of feet/ankles and worsening pain CBC, ESR nl; Lyme Ab +, Western Blot neg IGNACIO + 1:640, speckled pattern RhF neg, uric acid nl ASO + (230) Arthritis of right ankle 04/30/2017 DX:Arth ritis of right ankle; COMMENT: Onset mid April 2017; no trauma Lyme Ab +, Western Blot negative Xrays negative Strep antibodies +, treated with keflex IGNACIO +, additional rheum labs sent and referred to Dr Lehman, [place] [facility], apt 05/04/17 HLA B-27 Ag + Costochondritis, acute 03/10/2018 DX:Costoc hondritis, acute; COMMENT: 03-09-18 seen [facility] ER. EKG NEG Costochondritis, acute 03/10/2018 DX:Costoc hondritis, acute; COMMENT: 03-09-18 seen [facility] ER. EKG NEG Left foot pain 12/16/2016 DX:Left foot tere n; COMMENT: 12/01/16 [facility] : chronic, after injury , also ankle. X ray Nl. PT FU 2 M PT made pain worse acc to pt 04/18 - report of bilat swelling of feet/ankles and worsening pain CBC, ESR nl; Lyme Ab +, Western Blot neg IGNACIO + 1:640, speckled pattern RhF neg, uric acid nl ASO + (230) Hemorrhoids 06/14/2020 DX:Hemorrhoids; COMMENT: Follows with gastroenterology at [facility] Family History Medical History Relation Name Comments Asthma Father Hypertension Father kidney disease on dialysis Other: Hypothyroidism Father Other: proteinuria Father Other: ovarian cancer Maternal Grandmother Seizures Mother Other: diabetes Paternal Grandfather HTN Other: heart disease Paternal Grandmother Breast cancer Neg Hx Relation Name Status Comments Father Alive bakari haile Maternal Grandmother Mother Alive bong febous Paternal Grandfather Paternal Grandmother Social History Tobacco Use Types Packs/Day Years Used Date Smoking Tobacco: Never Smokeless Tobacco: Never Alcohol Use Standard Drinks/Week Comments No 0 (1 standard drink = 0.6 oz pur e alcohol) Housing Instability Answer Date Recorde d Are you worried that in the next 2 months you may not have stable housing? No 02/10/2024 Food Access & Nutrition Answer Date Rec orded Do you have access to a vari ety of food including fruits and vegetables? No 02/10/2024 Access to Healthcare Answer Date Record ed Within the last 3 months, ho w many times did you visit the emergency department for your medical care? 0 02/10/2024 Health Literacy Answer Date Recorded How often do you need to hav e someone help you when you read instructions, pamphlets, or other written material from your doctor or pharmacy? Never 02/10/2024 Caregiver: How often do you need to have someone help you when you read instructions, pamphlets, or other written material from your doctor or pharmacy? Not on file 02/10/2024 Financial Risk Answer Date Recorded How hard is it for you to pa y for the very basics like food, housing, medical care, and air conditioning / heating? Not very hard 02/10/2024 Transportation Answer Date Recorded Has the lack of transportati on kept you from meetings, work, or from getting things needed for daily living? No Has the lack of transportati on kept you from medical appointments or from getting medications? No 02/10/2024 Social Isolation Answer Date Recorded How often do you feel lonely or isolated from th ose around you? Never 02/10/2024 Food Risk Answer Date Recorded Within the past 12 months we worried whether our food would run out before we got money to buy more. Never true 02/10/2024 Within the past 12 months th e food we bought just didn't last and we didn't have money to get more. Never true 02/10/2024 Dependent Care Answer Date Recorded Do you need help finding or paying for care for your loved ones. For example, child development assistant or elderly care for an older adult? No 02/10/2024 Education Answer Date Recorded Do you think completing more education or training, like finishing a GED, going to college, or learning a trade, would be helpful for you? No 02/10/2024 Employment and Income Answer Date Recor ded During the last four weeks, have you been actively looking for work? No 02/10/2024 Living Situation Answer Date Recorded What is your living situation? 1 04/12/2023 Sex and Gender Information Value Date Recorded Sex Assigned at Not on file Gender Identity Not on file Sexual Orientation Not on file Job Start Date Occupation Industry Not on file Not on file Not on file Obstetrics History Para Term AB IAB SAB Ectopic Multiple Livin g Live Births 3 2 2 2 2 Date Outcome GA Total Labor Labor/2nd/3rd Weight Sex Type Anes PTL Clemencia A1 A5 Name Clin 2018 Term 39w 5d 3436 g (121.2 oz) M Vag-S pont Katie garsia [employer] [place] Comments:GBS+ 2023 Term 39w 0d F Vag-S pont Epidur al Livethel g Rosa alfaro, CHANTELLM Last Filed Vital Signs Vital Sign Reading Time Taken Comments Blood Pressure 100/68 02/11/2024 3:26 PM EST Pulse 68 02/11/2024 3:26 PM EST Temperature 36.8 ??C (98.2 ??F) 01/01/2024 7:37 AM ED T Respiratory Rate 16 01/01/2024 7:37 AM EDT Oxygen Saturation 99% 01/01/2024 7:37 AM EDT Inhaled Oxygen Concentration - - Weight 47.2 kg (104 lb) 02/11/2024 3:26 PM EST Height 147.3 cm (4' 10 ) 12/31/2023 5:19 PM EDT Body Mass Index 21.74 12/31/2023 5:19 PM EDT Plan of Treatment Upcoming Encounters Date Type Department Care Team (Late st Contact Info) Description 04/14/2024 12:00 PM EST Office Visit Adult Medicine [facility] - [address] [phone] Alyson Wiseman MD [address] [place] [address] 04/28/2024 11:00 AM EST Procedure visit Obstetrics and Gynecology [address] [phone] Sussy Chase, NATALIYA [address] [place] [address] [phone] Health Maintenance Due Date Last Done Comments COVID-19 Vaccine ( season) 2023 03/16/2021, 02/23/2021 Influenza Vaccine (#1) 2023 , 04/19/2018, 12/14/2015, Additional history exists Gonorrhea/Chlamydia Screening 07/29/2024 07/30/2023 Social Influencers of Health Screening 02/09/2025 02/10/2024 Depression Screening 03/19/2025 03/19/2024 Cervical Cancer Screening: Pap Smear 07/29/2026 07/30/2023, 07/30/2023, 07/30/2023 DTaP,Tdap,and Td Vaccines (8 - Td or Tdap) 07/12/2028 07/12/2018, 07/20/2011, 02/04/2004, Additional history exists HIB Vaccines Completed 12/31/2001, 04/2001, 2000, Additional history exists Hepatitis B Vaccines Completed 12/31/2001, 2000, 2000 Pneumococcal Vaccine: Pediatrics (0 to 5 Years) and At-Risk Patients (6 to 64 Years) Completed 12/01/2002 IPV Vaccines Completed 02/04/2004, 04/2001, 2000, Additional history exists MMR Vaccines Completed 02/04/2004, 06/02/2001 Varicella Vaccines Completed 08/25/2007, 06/02/2001 HPV Vaccines Completed 02/13/2013, 08/30, 07/20/2011 Meningococcal ACWY Vaccine Completed 03/27/2016, HIV Screening Completed 06/25/2023 Hepatitis C Screening Completed 06/25/2023 Hepatitis A Vaccines Aged Out No long er eligible based on patient's age to complete this topic RSV Immunization Patients Under 20 months Aged Out No longer eligible based on patient's age to complete this topic Procedures Procedure Name Priority Date/Time Associated Diagnosis Comments HPV Routine 07/30/2023 GONORRHEA/CHLAMYDIA SCRREENING Routine 07/30/2023 HEPATITIS C SCREENING Routine 06/25/2023 from Last 3 Months or Most Recently Relevant to Health Maintenance Results * Cervical Cancer Screening: HPV (07/30/2023) Cervical Cancer Screening: HPV abstracted, negative Historical Provider MD MITZI TAYLOR E * Gonorrhea/Chlamydia Screening (07/30/2023) Gonorrhea/Chla mydia Screening abstracted Historical Provider MD MITZI TAYLOR E * Hepatitis C Screening (06/25/2023) Hepatitis C Screening abstracted Historical Provider MD MITZI TAYLOR E from Last 3 Months or Most Recently Relevant to Health Maintenance Advance Directives * Full Code (Latest Code Status on File) Date Activated Date Inactivated Comments 12/31/2023 5:31 PM 01/01/2024 7:44 PM Cutover orde r - Refer to legacy medical record for details and original code status order details. Care Teams Production Grader Relationship Specialty Start Date End Date Ignacio De Souza MD [address] [place] [address] , [address] [facility] JAY Law PCP - General 06/15/23
--- OUTSIDE RECORDS SUMMARY | 2024-03-29 17:27 | XMS_ITS | Data Portability ---
Author Organization [place] - [facility], [address] Address [address] [place] [address] Assessment No assessment recorded. Plan of Treatment Reminders Order Date Submit Date Provider Last Modified By Organization Details Last Modified Time Details Appointments None recorded. Lab rapid SARS CoV 2 Ag, QL IA, respiratory specimen [address], [address] [place] [address], [phone], 08:40:58 rapid flu (A+B) 2021 [facility] [address] [place] [address], [address] [place] [address], [phone], 08:40:58 Referral None recorded. Procedures None recorded. Surgeries None recorded. Imaging None recorded. Medication Orders prednisone 20 mg tablet 2021 [facility] #[id number], [address] [place], [address], 08:41:00 fexofenadin e-pseudoeph edrine ER 180 mg-240 mg tablet,ext. release 24 hr 2021 [facility] #[id number], [address] [place], [address], 08:41:00 Patient TargetsNo targets recorded. Patient Instructions Encounter Date Encounter Id Patient Instructions Last Modified By Organization Details Last Modified Time 02/12/2022 [id number] - Use the medications prescribed. - Decongestants if tolerated. - Recommend recheck if fever develops or no improvement in 5-7 days. - Use saline nasal spray or neti-pot flushes once to twice a day to loosen mucus in sinuses. - I recommend having your ear rechecked in in 2 weeks with your primary provider to verify infection has resolved. -.Use a cool mist humidifier in the room that you sleep to add moisture to the air, which should soothe the airways and help loosen any mucus that may be present. -Call 911 or proceed to nearest Emergency Department if you develop shortness of breath, chest pain, severe headache or other symptoms that concern you. Not available 02/12/2022 08:41:10 If you test positive for COVID-19, stay home for at least 5 days and isolate from others in your home. You are likely most infectious during these first 5 days. Wear a high-quality mask if you must be around others at home and in public. Do not go places where you are unable to wear a mask. For travel guidance, see [facility]? s Travel webpage. Do not travel. Stay home and separate from others as much as possible. Use a separate bathroom, if possible. Take steps to improve ventilation at home, if possible. Don? t share personal household items, like cups, towels, and utensils. Monitor your symptoms. If you have an emergency warning sign (like trouble breathing), seek emergency medical care immediately. If you had symptoms and: Your symptoms are improving You may end isolation after day 5 if: You are fever-free for 24 hours (without the use of fever-reducing medication). Your symptoms are not improving Continue to isolate until: You are fever-free for 24 hours (without the use of fever-reducing medication). Your symptoms are improving. Regardless of when you end isolation Until at least day 11: Avoid being around people who are more likely to get very sick from COVID-19. Remember to wear a high-quality mask when indoors around others at home and in public. Do not go places where you are unable to wear a mask until you are able to discontinue masking (see below). For travel guidance, see [facility]? s Travel webpage. Not available 02/12/2022 08:41:33 Reason for Referral None Reported. Results Created Date Observation Date Name Description Value Unit Range Abnormal Flag Note LastModifiedBy Organization Detail LastModifiedTime 02/13/20 22 02/12/2022 rapid SARS CoV 2 Ag, QL IA, respi rator y speci men Unknown Analyte Normal =Negat vi Not Available [facility] [address], [phone], 02/12/2022 08:17:46 02/13/20 22 02/12/2022 rapid SARS CoV 2 Ag, QL IA, respi rator y speci men Unknown Analyte negati ve Not Available [address] [place] [address], [phone], 02/12/2022 08:17:46 02/13/20 22 02/12/2022 rapid flu (A+B) Unknown Analyte Normal = Negati ve Not Available [address] [place] [address], [phone], 02/12/2022 08:17:39 02/13/20 22 02/12/2022 rapid flu (A+B) Unknown Analyte Normal = Negati ve Not Available [address] [place] [address], [phone], 02/12/2022 08:17:39 02/13/20 22 02/12/2022 rapid flu (A+B) Unknown Analyte negati ve Not Available [address] [place] [address], [phone], 02/12/2022 08:17:39 02/13/20 22 02/12/2022 rapid flu (A+B) Unknown Analyte negati ve Not Available [address] [place] [address], [phone], 02/12/2022 08:17:39 Result Notes None recorded. Problems No Known Problems Medical Equipment None Reported. Allergies No known drug allergies Medications Name Sig Start Date Stop Date Status Note LastModified by Organization Details LastModified Time prednisone 20 mg tablet TAKE 2 TABLETS BY MOUTH EVERY DAY FOR 3 DAYS active Not Available Not Available No t Available oxycodone-ac etaminophen 5 mg-325 mg tablet TAKE 1 TABLET BY MOUTH 3 TIMES A DAY NEEDED FOR PAIN 02/12 completed Not Available Not Available Not Available ibuprofen 600 mg tablet TAKE 1 TABLET BY MOUTH EVERY 6 HOURS NEEDED FOR PAIN 02/12 completed Not Available Not Available Not Available cyclobenzapr ine 5 mg tablet TAKE 1 TABLET BY MOUTH THREE TIMES A DAY NEEDED FOR MUSCLE SPASMS 02/12 completed Not Available Not Available Not Available fexofenadine -pseudoephed rine ER 180 mg-240 mg tablet,ext.r elease 24 hr Take 1 tablet every day by oral route for 10 days. 2021 active Not Available Not Available Not Avai lable Vitals Date Recorded Body height Provider Name an d Address Organization Details Last Updated DateTime 02/12/2022 149.86 cm JASON COUVERTIER [place] - [facility] 02/12/2022 08:15:15 Date Recorded Body mass index (BMI) Body weight Provider Name and Address Organization Details Last Updated DateTime 02/12/2022 22.2 kg/m2 83272.16 g JASON CARNEY [place] - [facility] 02/12/2022 08:15:18 Date Recorded Body temperature Provider Name a nd Address Organization Details Last Updated DateTime 02/12/2022 97.8 [degF] JASON CARNEY [place] - [facility] 02/12/2022 08:17:19 Date Recorded Respiratory rate Provider Name a nd Address Organization Details Last Updated DateTime 02/12/2022 18 /min IRIS CLAUDIAVERTIER [place] - [facility] 02/12/2022 08:17:20 Date Recorded Heart rate Provider Name an d Address Organization Details Last Updated DateTime 02/12/2022 64 /min JASON COUVERTIER [place] - [facility] 02/12/2022 08:17:23 Date Recorded Oxygen saturation Oxygen saturation in Arterial blood by Pulse oximetry Provider Name and Address Organization Details Last Updated DateTime 02/12/2022 98 % 98 % JASON TAYLORVERTJORDAN [place] - [facility] 02/12/2022 08:17:26 Date Recorded Systolic blood pressure Diastolic blood pressure Provider Name and Address Organization Details Last Updated DateTime 02/12/2022 107 mm[Hg] 68 mm[Hg] JASON CARNEY [facility] 02/12/2022 08:17:31 Social History Question Answer Notes LastModified by Organizat ion Details LastModified Time Tobacco Smoking Status Never Smoker JASON CARNEY [facility] 02/12/2022 08:15:49 What Is Your Level Of Alcohol Consumption? Occasional Information not available 02/12/2022 What Is Your Water Source? City Information not available 02/12/2022 What Is Your Heat Source? Gas Information not available 02/12/2022 Have You Had Direct Contact, Or Contact During Intimacy, With Monkeypox Rash, Scabs, Or Body Fluids From A Person With Monkeypox? No Information not available 02/12/2022 Do You Use Any Illicit Or Recreational Drugs? No Information not available 02/12/2022 Have You Recently Traveled Abroad? No Information not available 02/12/2022 Do You Or Have You Ever Used Any Other Forms Of Tobacco Or Nicotine? No Information not available 02/12/2022 Sex: Unknown Functional Status None recorded. Mental Status None recorded. Family History Relationship Description Onset Age of this Age Resolved Age Notes LastModified by Organization Details LastModified Time Father No current problems or disability Not available 08:15:38 Mother No current problems or disability Not available 08:15:38 Medical History No medical history recorded. Gynecological History Statement/Question Response Date of LMP 02/12/2022 Obstetrics History GPAL:G 0 P 0 0 0 0 Past Encounters Encounter ID Performer Location Encounter Start Date Encounter Closed Date Diagnosis/Indication Diagnosis SNOMED-CT Code Diagnosis ICD10 Code Diagnosis Note [id number] [place] [address] 12/23/2019 13:52:02 12/23/2019 14:51:01 [id number] Cain Hood [place] [address] [place] [address] 02/12/2022 08:03:20 02/12/2022 08:45:47 Acute sinusitis 44507376 J01.90 Exposure t o SARS-CoV-2 484421939 Z20.822 Health Concerns Section Related Observation LastModified by Organization Detai ls LastModified Time None Recorded Concern Status LastModified by Organization Details LastModified Time None Recorded Advance Directives Directive None Recorded Payers Encounter Date Sequence Insurance Name Policy Number Policy He Covered Member ID He Member ID Guarantor Name 12/23/2019 1 [facility] NET PLAN (MEDICAID HMO) [id number] Miranda Haile Olivier [id number] Miranda Haile [facility] 02/12/2022 1 [facility] HE[facility] NET PLAN (MEDICAID HMO) [facility] Miranda Haile Olivier [id number] Mirandaasael Dejesusa [facility] 02/12/2022 2 [place] [facility] Miranda Apodacabus [id number] Miranda Haile [facility] Notes Date Note Type Note Provider Name and Address Organization Details Recorded Time 02/12/2022 text/html CongestionReport ed bypatient.Notes:nasal congestion, post nasal drip x 2 days. no fever or fever with chills. no SOb or respiratory distress. Vital signs normal. Cain Hood NP [address] [facility] [place], [address], [place] - [facility] 02/12/2022 08:44:18 OBGyn Episode No OBEpisode recorded.
[2024-03-29 17:50] VITALS: BP 102/64; PULSE 61; RESP 14; TEMP 36.4; O2SAT 100
--- NOTE | 2024-03-29 17:51 | W.PM.OPN ---
Operative Note Operative Note Date of Service: 03/29/24 Narrative: PreOperative Diagnosis: Distal right ureteric stone with proximal hydro uretero nephrosis Post Operative Diagnosis: Distal right ureteric stone with proximal hydro uretero nephrosis Procedure: - cystoscopy, right retrograde - right dilatation of ureteric orifice under fluoroscopy - right ureteroscopy, laser lithotripsy, stone basketing - right stent placement Surgeon: Dr Nehemiah Easton Anesthesia: General Indications for procedure: 7 mm distal right ureteric stone seen in emergency room. Unable to pass. Persistent pain. Procedure: After informed consent was verified the patient was brought to the operating room and placed in a supine position. Anesthesia was administered per protocol. The patient was placed in a modified dorsal lithotomy position and prepped and draped in a sterile fashion. Safety pause time-out and side of surgery were confirmed. Images were available for review. Antibiotic administration confirmed. A 22 Ukrainian cystoscope was inserted per urethra. The urethra was without abnormality. The bladder was normal in its entirety. Both ureteric orifices were seen in normal position. Right ureteric orifice appeared to be swollen. The right ureteric orifice was cannulated and a retrograde examination was performed. Filling defects seen in distal portion of ureter with proximal hydro uretero nephrosis . A Sensor guidewire was placed up to the level of the renal pelvis under fluoroscopy. The rigid cystoscope was removed. A Angela dilator was placed over the Sensor guidewire and used to dilate the ureteric orifice under fluoroscopy. The dilator was removed. The semi rigid ureteral scope was placed alongside the Sensor guidewire. Stone was engaged. Using a 365 micro holmium laser fiber the stone was broken into small pieces using a combination of hammer and dusting techiques. Stone fragments were removed from the ureter using a 2.4 ZeroTip basket basket. Once the fragments were removed a decision was made to place a ureteric stent. Based on the height of the patient a 6 Fr x 22 cm stent was used. The string was removed from the stent prior to placement. A 6 Ukrainian by 22 cm double-J stent was placed into the renal pelvis and bladder under a combination of fluoroscopy and direct visualization. The symphisis pubis was used as a radiographic marker to release the stent and good coil was seen within the bladder confirming position Proximal positioning of the stent was confirmed using fluoroscopy. The bladder was emptied. The patient tolerated the procedure well and was extubated in the operating room. They were transferred in stable condition to the recovery area. Pathology: stones Drains: Double J stent as described above
[2024-03-29 17:55] VITALS: BP 104/62; PULSE 59; RESP 16; O2SAT 100
[2024-03-29] MEDS: Ketorolac Tromethamine 15 MG/ML VIAL IVPUSH (17:56)
[2024-03-29] MEDS: Phenazopyridine HCL 100 MG TABLET PO (17:59)
[2024-03-29 18:00] VITALS: BP 111/68; PULSE 55; RESP 12; O2SAT 99
[2024-03-29 18:05] VITALS: BP 106/73; PULSE 60; RESP 16; O2SAT 100
[2024-03-29 18:22] VITALS: BP 108/61; PULSE 62; RESP 16; TEMP 36.7; O2SAT 100
== END 2024-03-29 18:34 | disposition home or self-care (01) ==
PROVIDERS: Anesthesiology; Visit Provider Urology
PROC: (CPT 52356; principal; 2024-03-29 17:00)
DX: N13.2 Hydronephrosis with renal and ureteral calculous obstruction (principal)
CPT/HCPCS: 52356; 81025; 82365; 88300; C1758; C1769; C2617; J0131; J1100; J1885; J2003; J2250; J2405; J2704; J3010; Q9967

== ENCOUNTER → 2024-03-29 15:35 | Outpatient (BNV) | payer OTHER, SELFPAY | PROVIDERS: Visit Provider Urology | DX: N13.2 Hydronephrosis with renal and ureteral calculous obstruction (principal) | CPT/HCPCS: 52356; 74420 ==

== ENCOUNTER → 2024-04-07 08:45 | Outpatient (BNVA) | payer OTHER, SELFPAY | PROVIDERS: Visit Provider Urology | DX: N20.1 Calculus of ureter (principal); N83.209 Unspecified ovarian cyst, unspecified side; Z46.6 Encounter for fitting and adjustment of urinary device | CPT/HCPCS: 52310; 81003 ==

== ENCOUNTER 2024-04-26 09:29 | Outpatient (REF) | payer OTHER, SELFPAY ==
--- NOTE | ~2024-04-26 | US_ITS ---
CLINICAL HISTORY: N20.1 - Calculus of ureter Ultrasound kidneys. COMPARISON: None Technique: Real time sonographic imaging, including color-flow imaging, was performed by the bowling alley attendant. Multiple technical sales representatives static images were saved for review. FINDINGS: Right kidney: Cortical medullary differentiation is maintained. Normal color flow by Doppler. Midpole calculus measuring 0.3 x 0.3 x 0.2 cm. No hydronephrosis. Right kidney size: 9.2 x 5.0 x 4.1 cm Left kidney: Cortical medullary differentiation is maintained. Normal color flow by Doppler. Calculi within the midpole measuring 0.3 x 0.3 x 0.5 cm and 0.3 x 0.3 cm. No hydronephrosis. Left kidney size: 9.9 x 4.1 x 4.3 cm IMPRESSION: 1. No evidence of renal obstruction. 2. Nonobstructing renal calculi present bilaterally measuring up to 3 mm on the right and 5 mm on the left. This document has been electronically signed by: Nacho Avila MD on 04/26/2024 14:55:01
--- OUTSIDE RECORDS SUMMARY | 2024-04-26 10:46 | XMS_ITS | Encounter Summary ---
Author Organization [facility] Address [address] [place] [address] Care Team Providers Care Net Developer Architect Name Role Phone Birgit De Souza MD Primary Care Provider Alyson Henderson MD Primary Care Provider + Birgit De Souza MD Primary Care Provider Tommy stratton Encounter Details Date Type Department Care Team Description 07/23/2023 Telephone [facility] [employer] [address] [place] [address] Yenny Bowden MD [address] [place] [id number] Social History Tobacco Use Types Packs/Day Years Used Date Smoking Tobacco: Never Smokeless Tobacco: Never Alcohol Use Standard Drinks/Week Comments No 0 (1 standard drink = 0.6 oz pur e alcohol) Sex Assigned at Date Recorded Not on file Job Start Date Occupation Industry Not on file Not on file Not on file documented as of this encounter Miscellaneous Notes * Telephone Encounter - Asia Garcia R.N. - 07/23/2023 11:42 AM EDT Spoke with patient.Pt c/o RLQ pain for an hour, Denies fever or N/V or diarrhea /constipation. Pos FM denies VB. Pt enc to keep hydrated and monitor for the day to see if pain increases or decreases.To go to ED if severe pain continues. No office appts available in all sites. * Telephone Encounter - Ronit Kain - 07/23/2023 11:12 AM EDT Chief Complaint/problem: Early prgenancy sharp right lower pain, patient is anxious and is not sureif this is normal please advise How long has the patient had this problem? 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
--- OUTSIDE RECORDS SUMMARY | 2024-04-26 10:46 | XMS_ITS | Encounter Summary ---
Author Organization [facility] Address [address] [place] [address] Care Team Providers Care Publication Designer Name Role Phone Birgit De Souza MD Primary Care Provider Tommy stratton Encounter Details Date Type Department Care Team Description 11/03/2023 Pt. Non Urgent Medical Question OBGYN - [place] [address] [place] [address] Sussy Chase CNM [address] [place] [address] Social History Tobacco Use Types Packs/Day Years [...] encounter Miscellaneous Notes * Telephone Encounter - Chaparrita Fine R.N. - 11/03/2023 11:41 AM EDTFrom: Miranda Aguayo To: Sussy Chase CNM Sent: 11/03/2023 9:10 AM EDT Subject: Gina Hi, When I was there on Wednesday I scheduled the rest of my appointments I was told 11-05-23 appt at 11:30 am was cancled because it was to soon of an appointment which I understand, I was never told my 11-19-23 appointment was canceled and they rescheduled me for 11-18-23 which I did not agree with. As right now I have no appointments scheduled for october. The lady I was on the phone with this morning was very rude, I was trying to explain the days and time I can go in for my appointmentsand she kept intrupting me. Can someone from your office call or schedule me my 2 week follow up appointment in either [place] or [place] fridays after 12pm please and thank you documented in this encounter Plan of Treatment Not on file documented as of this encounter Visit Diagnoses Not on filedocumented in this encounter Care Teams Publication Designer Relationship Specialty Start Date End Date Birgit De Souza MD PCP - General Internal Medicine 09/24/23 documented as of this encounter
--- OUTSIDE RECORDS SUMMARY | 2024-04-26 10:46 | XMS_ITS | Encounter Summary ---
Author Organization [facility] Address [address] [place] [address] Care Team Providers Care Credit Collections Specialist Name Role Phone Harvey Mckeon MD Primary Care Provider Zia Clinton, Pcp Primary Care Provider Gina Forde MD Primary Care Provider Unavail able Birgit De Souza MD Primary Care Provider Alyson Henderson MD Primary Care Provider + Birgit De Souza MD Primary Care Provider Tommy stratton Reason for Visit * Reason Comments E-prescribe Rx Request Encounter Details Date Type Department Care Team Description 05/22/2017 Refill Pediatrics - [address] [address] Yesenia Wolff MD E-prescribe Rx Request Social History Tobacco Use Types Packs/Day Years Used Date Smoking Tobacco: Never Alcohol Use Standard Drinks/Week Comments No 0 (1 standard drink = 0.6 oz pur e alcohol) Sex Assigned at Date Recorded Not on file Job Start Date Occupation Industry Not on file Not on file Not on file documented as of this encounter Miscellaneous Notes * Telephone Encounter - Candida Haile - 05/24/2017 8:42 AM EDT When was patients last PE/WCC? 03/21/16 When is patients next PE/WCC scheduled? 07/23/17 Harvey Mckeon RX REQUEST WHEN MED IS ON THE LIST: All of the medications requested were on the CURRENT MEDS list Did you check the Pharmacy information above?: YES Indicate how soon the patient needs the script: SATHISH Patient would like script to be: E-PRESCRIBED/FAXED TO PHARMACY Is the doctor here today?: YES Can the message wait until the doctor returns?: NO Has the patient been told that the prescription will not be filled until the end of the day? NO Harvey Mckeon Payor: Dr. Z FFS / Plan: [facility] [employer] / Product Type: MEDICAID RISK documented in this encounter Plan of Treatment Not on file documented as of this encounter Visit Diagnoses Not on filedocumented in this encounter Care Teams Credit Collections Specialist Relationship Specialty Start Date End Date Harvey Mckeon MD PCP - General 06/03/09 10/25/18 [facility], Pcp PCP - General Internal Medicine 10/26/18 11/16/18 Gina Arroyo MD PCP - General Internal Medicine 11/17/18 06/14/23 Birgit De Souza MD PCP - General Internal Medicine 06/15/23 09/05/23 Alyson Wiseman MD [address] [place] [address] PCP - General Internal Medicine 09/06/23 09/23/23 Birgit De Souza MD PCP - General Internal Medicine 09/24/23 documented as of this encounter
--- OUTSIDE RECORDS SUMMARY | 2024-04-26 10:46 | XMS_ITS | Encounter Summary ---
Author Organization [facility] Address [address] [place] [address] Care Team Providers Care Work Counselor Name Role Phone Harvey Mckeon MD Primary Care Provider Zia Clinton, Pcp Primary Care Provider Gina Forde MD Primary Care Provider Unavail able Birgit De Souza MD Primary Care Provider Alyson Henderson MD Primary Care Provider + Birgit De Souza MD Primary Care Provider Tommy stratton Encounter Details Date Type Department Care Team Description 07/18/2015 Release of Information Medical Records [address] [place] [id number] Abstract, Provider Social History Tobacco Use Types Packs/Day Years Used Date Smoking Tobacco: Never Alcohol Use Standard Drinks/Week Comments Not Asked 0 (1 standard drink = 0.6 oz pur e alcohol) Sex Assigned at Date Recorded Not on file Job Start Date Occupation Industry Not on file Not on file Not on file documented as of this encounter Plan of Treatment Not on file documented as of this encounter Visit Diagnoses Not on filedocumented in this encounter Care Teams Work Counselor Relationship Specialty Start Date End Date Harvey Mckeon MD PCP - General 06/03/09 10/25/18 [facility], Pcp PCP - General Internal Medicine 10/26/18 11/16/18 Gina Arroyo MD PCP - General Internal Medicine 11/17/18 06/14/23 Birigt De Souza MD PCP - General Internal Medicine 06/15/23 09/05/23 Alyson Wiseman MD [address] [place] [id number] PCP - General Internal Medicine 09/06/23 09/23/23 Birgit De Souza MD PCP - General Internal Medicine 09/24/23 documented as of this encounter
--- OUTSIDE RECORDS SUMMARY | 2024-04-26 10:46 | XMS_ITS | Encounter Summary ---
Author Organization [facility] Address [address] [place] [address] Care Team Providers Care Municipal Bond Trader Name Role Phone Gina Arroyo MD Primary Care Provider [facility] Birgit Graves MD Primary Care Provider Alyson Henderson MD Primary Care Provider + Birgit De Souza MD Primary Care Provider Tommy stratton Reason for Visit * Reason Onset Date Comments Letter 11/21/2018 Encounter Details Date Type Department Care Team Description 11/21/2018 Telephone Adult Medicine [address] [address] Tyesha Jennings PA-C Letter Social History Tobacco Use Types Packs/Day Years [...] encounter Miscellaneous Notes * Telephone Encounter - Miranda Rudolph M.A. - 11/21/2018 1:51 PM EDT In [facility] Pt notified * Telephone Encounter - Miriam Moreau - 11/21/2018 1:44 PM EDT PATIENT WAS SEEN ON Wednesday11/18/2018 AND GIVEN A LETTER. PATIENT LOST HER LETTER WOULD LIKE TO GET COPY. documented in this encounter Plan of Treatment Not on file documented as of this encounter Visit Diagnoses Not on filedocumented in this encounter Care Teams Municipal Bond Trader Relationship Specialty Start Date End Date Gina Arroyo MD PCP - General Internal Medicine 11/17/18 06/14/23 Birgit De Souza MD PCP - General Internal Medicine 06/15/23 09/05/23 Alyson Wiseman MD [address] [place] [id number] PCP - General Internal Medicine 09/06/23 09/23/23 Birgit De Souza MD PCP - General Internal Medicine 09/24/23 documented as of this encounter
--- OUTSIDE RECORDS SUMMARY | 2024-04-26 10:46 | XMS_ITS | Encounter Summary ---
Author Organization [facility] Address [address] [place] [address] Care Team Providers Care Transport Company Manager Name Role Phone Harvey Mckeon MD Primary Care Provider Zia Clinton, Pcp Primary Care Provider Gina Forde MD Primary Care Provider Unavail able Birgit De Souza MD Primary Care Provider Alyson Henderson MD Primary Care Provider + Birgit De Souza MD Primary Care Provider Tommy stratton Encounter Details Date Type Department Care Team Description 12/14/2017 Format Proofreader Report Medical Records [address] [place] [id number] Conrad Lehman Social History Tobacco Use Types Packs/Day Years [...] on filedocumented in this encounter Care Teams Transport Company Manager Relationship Specialty Start Date End Date Harvey Mckeon MD PCP - General 06/03/09 10/25/18 Oz, Pcp PCP - General Internal Medicine 10/26/18 11/16/18 Gina Arroyo MD PCP - General Internal Medicine 11/17/18 06/14/23 Birgit De Souza MD PCP - General Internal Medicine 06/15/23 09/05/23 Alyson Wiseman MD [address] [place] [id number] PCP - General Internal Medicine 09/06/23 09/23/23 Birgit De Souza MD PCP - General Internal Medicine 09/24/23 documented as of this encounter
--- OUTSIDE RECORDS SUMMARY | 2024-04-26 10:46 | XMS_ITS | Encounter Summary ---
Author Organization [facility] Address [address] [place] [address] Care Team Providers Care Demographer Name Role Phone Birgit De Souza MD Primary Care Provider Alyson Henderson MD Primary Care Provider + Birgit De Souza MD Primary Care Provider Tommy stratton Encounter Details Date Type Department Care Team Description 08/04/2023 Transfer Records Medical Records [address] [place] [id number] Abstract, Provider Social History Tobacco Use Types [...] on filedocumented in this encounter Care Teams Demographer Relationship Specialty Start Date End Date Birgit De Souza MD PCP - General Internal Medicine 06/15/23 09/05/23 Alyson Wiseman MD [address] [place] [id number] PCP - General Internal Medicine 09/06/23 09/23/23 Birgit De Souza MD PCP - General Internal Medicine 09/24/23 documented as of this encounter
--- OUTSIDE RECORDS SUMMARY | 2024-04-26 10:46 | XMS_ITS | Clinical Summary ---
Author Organization [facility] [address] [place] [address] Address [address] [place] [address] Phone Care Team Providers Care [employer] Team Member Name Role Phone Alyson Wiseman MD Primary Care Pr ovider Allergies No known active allergies Medications Vitamin iron fum-folic acid 27-0.8 mg per tablet Take 1 tablet by mouth 1 (one) time each day. 06/16/2023 Active ibuprofen (ADVIL,MOTRIN) 800 mg tablet Take 1 tablet (800 mg total) by mouth every 8 (eight) hours if needed for moderate pain. 90 tablet 01/01/2024 Active levonorgestreL (PLAN B) 1.5 mg tabletIndicatio ns:Unprotected sex Take 1 tablet (1.5 mg total) by mouth 1 (one) time for 1 dose. 1 tablet 02/11/2024 Active norethindrone-e thinyl estradiol (NECON) 0.5-35 mg-mcg per tablet Take [...] 06/14/2020 Overview (11/30/2023): Follows with gastroenterology at [facility] Costochondritis, acute 03/10/2018 Overview (11/30/2023): 03-09-18 seen [facility] ER. EKG NEG Arthritis of right [...] 02/11/2024 Overview (01/24/2024): 2023 1. [facility] site: [address] 2. Delivery site: [facility] 3. Mobile Mommas: 4. Dating criteria: LMP [...] 3:15 PM EST Visit Obstetrics and Gynecology [address] [phone] [place], [place] (Primary Dx); Breast feeding status of mother; Unprotected sex; control counseling from Last 3 Months Immunizations Name Administration Dates Next Due DTaP (Infanrix) 6wks to less than 7yo ,09/06/2002,11/02/2001,06/21,2000 [id number] (Pentacel) 2mo to less than 5yo 12/31/2001,2000,2000 [...] labs sent and referred to Dr Lehman, Pedi Rheum, apt 05/04/17 HLA B-27 Ag + Costochondritis, acute 03/10/2018 DX:Costoc hondritis, acute; COMMENT: 03-09-18 seen [facility] ER. EKG NEG Costochondritis, acute 03/10/2018 DX:Costoc hondritis, acute; COMMENT: 03-09-18 seen [facility] ER. EKG NEG Left foot pain [...] 06/14/2020 DX:Hemorrhoids; COMMENT: Follows with gastroenterology at [facility] Family History Medical History Relation Name Comments [...] care for your loved ones. For example, children counselor or elderly care for an older adult? [...] What is your living situation? 1 04/12/2023 Comments No Sex and Gender Information Value Date Recorded Sex Assigned at Not on file Legal Sex Female 4:31 AM EST Gender Identity Not on file Sexual Orientation Not on file Obstetrics History Para Term AB IAB SAB Ectopic Multiple Livin g Live Births 3 2 2 2 2 Date Outcome GA Total Labor Labor/2nd/3rd Weight Sex Type Anes PTL Clemencia A1 A5 Name Clin 2018 Term 39w 5d 3436 g (121.2 oz) M Vag-S pont Livin g Bay[place] ate Comments:GBS+ 2023 Term 39w 0d F Vag-S pont Epidur al Livin g Rosa Morales o, CNM Last Filed Vital Signs Vital Sign Reading [...] Care Team (Late st Contact Info) Description 04/28/2024 11:00 AM EST Procedure visit Obstetrics and Gynecology - [place] [address] [place] [address] Sussy Chase, NATALIYA [address] [place] [address] Health Maintenance Due Date Last Done Comments COVID-19 Vaccine ( season) 2023 03/16/2021, 02/23/2021 Influenza Vaccine (#1) 2023 9, 04/19/2018, 12/14/2015, Additional history exists Gonorrhea/Chlamydia Screening 07/29/2024 07/30/2023 Social Influencers of Health Screening 02/09/2025 02/10/2024 Depression Screening 04/25/2025 04/25/2024 Cervical Cancer Screening: Pap Smear 07/29/2026 07/30/2023, [...] on patient's age to complete this topic Meningococcal B Vacine Aged Out No lo nger eligible based on patient's age to complete [...] (07/30/2023) Cervical Cancer Screening: HPV abstracted, negative [facility] Provider HEALTH MAINTENANCE Final Result * Gonorrhea/Chlamydia Screening (07/30/2023) Gonorrhea/Chla mydia Screening abstracted [facility] Provider HEALTH MAINTENANCE Final Result * Hepatitis C Screening (06/25/2023) Hepatitis C Screening abstracted [facility] Provider HEALTH MAINTENANCE Final Result from Last 3 Months or Most Recently Relevant to Health Maintenance Insurance [facility] Advance Directives * Full Code (Latest Code Status on File) Date Activated Date Inactivated Comments 12/31/2023 5:31 PM 01/01/2024 7:44 PM Cutover orde r - Refer to legacy medical record for details and original code status order details. Care Teams [employer] Team Member Relationship Specialty Start Date End Date Alyson Wiseman MD [address] [place] [id number] PCP - General Internal Medicine 04/13/24
--- OUTSIDE RECORDS SUMMARY | 2024-04-26 10:46 | XMS_ITS | Encounter Summary ---
Author Organization [facility] Address [address] [place] [address] Care Team Providers Care Fabrication Specialist Name Role Phone Birgit De Souza MD Primary Care Provider Tommy stratton Reason for Visit * Reason Onset Date Comments DME Request 11/26/2023 Post dyan very support garment, support belt and maternity compression socks Encounter Details Date Type Department Care Team Description 11/26/2023 Telephone OBGYN - [place] [address] [place] [address] Sussy Chase, [place] [address] [place] [address] DME Request (Post recovery support garment, support belt and maternity compression socks) Social History Tobacco Use Types Packs/Day Years [...] encounter Miscellaneous Notes * Telephone Encounter - Jie Padilla - 12/09/2023 12:10 PM EDT Second request received. * Telephone Encounter - Jie Padilla - 11/26/2023 10:49 AM EDT Name of Product: Post recovery support garment, support belt and maternity compression socks Specific information about product x # Needed nk Reason patient is asking for this supply? Pelvic and perineal pain, low back pain, and varicose veins of low extm in Have you received this supply before? If yes , when?: no Have you discussed the need for this supply with a provider at a recent visit? NO If yes, with who and when? N/A When completed: Fax to other office/MD at fax # [phone] Have you told the patient it will take 7-10 days for completion of this request? NO documented in this encounter Plan of Treatment Not on file documented as of this encounter Visit Diagnoses Not on filedocumented in this encounter Care Teams Fabrication Specialist Relationship Specialty Start Date End Date Birgit De Souza MD PCP - General Internal Medicine 09/24/23 documented as of this encounter
--- OUTSIDE RECORDS SUMMARY | 2024-04-26 10:46 | XMS_ITS | Encounter Summary ---
Author Organization [facility] Address [address] [place] [address] Care Team Providers Care Director Of Vocational Guidance Name Role Phone Harvey Mckeon MD Primary Care Provider Zia Clinton, Pcp Primary Care Provider Gina Forde MD Primary Care Provider Unavail able Birgit De Souza MD Primary Care Provider Alyson Henderson MD Primary Care Provider + Birgit De Souza MD Primary Care Provider Tommy stratton Reason for Visit * Reason Onset Date Comments Note,school 11/10/2016 Encounter Details Date Type Department Care Team Description 11/10/2016 Telephone Pediatrics - [address] [phone] Harvey Mckeon MD Note,school Social History Tobacco Use Types Packs/Day Years Used Date Smoking Tobacco: Never Alcohol Use Standard Drinks/Week Comments No 0 (1 standard drink = 0.6 oz pur e alcohol) Sex Assigned at Date Recorded Not on file Job Start Date Occupation Industry Not on file Not on file Not on file documented as of this encounter Miscellaneous Notes * Telephone Encounter - Nahomi León M.A. - 11/11/2016 1:14 PM EDT Letter completed by provider, at front office help, message left for parent. * Telephone Encounter - Jennifer Blackwell - 11/10/2016 3:03 PM EDT Signs/Symptoms: Dad needs note for school, daughter has foot issues that cause swelling. Has an apton the 02 of December with [facility], but in the meantime she will need a note stating she cannot use the stairs in school, only elevator Duration of symptoms: Recently Temperature: N/a Allergies: Review of patient's allergies indicates no known allergies. Any chronic illnesses: Patient Active Problem List Diagnosis Code ??? Short stature [id number] Is the child taking any medications: Current Outpatient Prescriptions Medication Sig Dispense Refill ??? medroxyPROGESTERone (DEPO-PROVERA) 150 MG/ML injection Inject 1 mL into the muscle Every 3 Months. 1 mL 3 No current facility-administered medications for this visit. documented in this encounter Plan of Treatment Not on file documented as of this encounter Visit Diagnoses Not on filedocumented in this encounter Care Teams Director Of Vocational Guidance Relationship Specialty Start Date End Date Harvey Mckeon MD PCP - General 06/03/09 10/25/18 [facility] Pcp PCP - General Internal Medicine 10/26/18 11/16/18 Gina Arroyo MD PCP - General Internal Medicine 11/17/18 06/14/23 Birgit De Souza MD PCP - General Internal Medicine 06/15/23 09/05/23 Alyson Wiseman MD [address] [place] [phone] PCP - General Internal Medicine 09/06/23 09/23/23 Birgit De Souza MD PCP - General Internal Medicine 09/24/23 documented as of this encounter
--- OUTSIDE RECORDS SUMMARY | 2024-04-26 10:46 | XMS_ITS | Encounter Summary ---
Author Organization [facility] Address [address] [place] [address] Care Team Providers Care Typewriter Repairer Name Role Phone Harvey Mckeon MD Primary Care Provider Zia Clinton, Pcp Primary Care Provider Gina Forde MD Primary Care Provider Unavail able Birgit De Souza MD Primary Care Provider Alyson Henderson MD Primary Care Provider + Birgit De Souza MD Primary Care Provider Tommy stratton Encounter Details Date Type Department Care Team Description 07/17/2015 Diagnostics Tech Report Medical Records [address] [place] [id number] Kali Zhou MD Social History Tobacco Use Types Packs/Day Years [...] on filedocumented in this encounter Care Teams Typewriter Repairer Relationship Specialty Start Date End Date Harvey Mckeon MD PCP - General 06/03/09 10/25/18 Oz, Pcp PCP - General Internal Medicine 10/26/18 11/16/18 Gina Arroyo MD PCP - General Internal Medicine 11/17/18 06/14/23 Birgit De Souza MD PCP - General Internal Medicine 06/15/23 09/05/23 Alyson Wiseman MD [address] [place], [place] [phone] PCP - General Internal Medicine 09/06/23 09/23/23 Birgit De Souza MD PCP - General Internal Medicine 09/24/23 documented as of this encounter
--- OUTSIDE RECORDS SUMMARY | 2024-04-26 10:47 | XMS_ITS | Clinical Summary ---
Author Organization [facility] Address [address] [place] [address] Care Team Providers Care Supervisor Boat Outfitting Name Role Phone Birgit De Souza MD Primary Care Provider Tommy stratton Allergies No known active allergies Medications Medication Sig Dispensed Refills Start Date End Date Status acetaminophen (TYLENOL) 650 MG CR tablet Take 1 Tab by mouth every 8 hours as needed for Pain for up to 7 days. 24 Tab 0 05/17/2020 Active promethazine (PHENERGAN) 25 MG tablet Take 1 Tablet by mouth every 6 hours as needed for Nausea for up to 30 days. 60 Tablet 0 06/16/2023 Active Vit-Fe Fumarate-FA ( Vitamin) 27-0.8 MG Tab Take 1 Tablet by mouth daily. 90 Tablet 3 06/16/2023 Active ferrous gluconate (FERGON) 324 (38 Fe) MG tabletIndications:Ane patrick during in third trimester Take 1 Tablet by mouth every other day. 45 Tablet 4 10/28/2023 Active Active Problems Problem Noted Date Anemia in 10/28/2023 Overview: Iron supplement Lab Results Component Value Date HGB 10.1 10/22/2023 HGB 11.9 06/25/2023 Elevated glucose tolerance test 10/28/19 24 Overview: 3hr ordered- Normal 3hr GTT Maternal varicella, non-immune Overview: Vaccinate PP Last Assessment & Plan: Vaccinate PP Supervision of normal intrauterine pregn gasper in multigravida 06/25/2023 Overview: 1. [facility] site: [address] 2. Delivery site: [facility] 3. Mobile Mommas: 4. Dating criteria: LMP [...] - F. Circumcision - 9. Hospital Course: Nausea and vomiting in 024 Overview: Using promethazine, and zofran with good effect. Last Assessment & Plan: Improved, prn phenergan Constipation in in first trime ster 06/25/2023 Overview: Using Miralax. List of other alternative constipation medications that are safe to take in given. Last Assessment & Plan: Continue water, Miralax prn Arthritis of right ankle 04/30/2017 Overview: Onset mid April 2017; no trauma Lyme Ab +, Western Blot negative Xrays negative Strep antibodies +, treated with keflex BIRGIT +, additional rheum labs sent and referred to [facility], apt 05/04/17 HLA B-27 Ag + 12/[address] Lehman Changed to Methotrexate and folic acid FU 2 months Resolved Problems Problem Noted Date Resolved Date Hemorrhoids 06/14/2020 12/17/2023 Overview: Follows with gastroenterology at [facility] Costochondritis, acute 03/10/2018 Overview: 03-09-18 seen [facility] ER. EKG NEG Eczema 08/09/2017 11/18/2018 Left foot pain 12/16/2016 12/10/2023 Overview: 12/01/16 [facility] : chronic, after injury , also ankle. X ray Nl. PT FU 2 M PT made pain worse acc to pt 04/18 - report of bilat swelling of feet/ankles and worsening pain CBC, ESR nl; Lyme Ab +, Western Blot neg BIRGIT + 1:640, speckled pattern RhF neg, uric acid nl ASO + (230) Short stature 07/03/2009 11/18/2018 Overview: Karyotype 46 xx - 01/10/03 Asthma 07/03/2009 11/18/2018 Overview: Albuterol prn Immunizations Name Administration Dates Next Due DTaP 02/04/2004, 3,11/02/2001,06/21,2000 HIB 12/31/2001,2000,2000 HPV (Gardasil) 02/13/2013,09/21/2011,07/20/2011 Hepatitis B-3 Dose (<19yrs) 12/31/2001, 1,2000 Influenza (> 6 Months) 02/13/2013,2009,12/05/2008,12/08 Influenza (>6 Months) Split Preservative Free 12/14/2015,03/14/2014 Influenza Vaccine-preservati ve Free-quadrivalent 4 Years 01/10/2019 MMR (Ciibmju-Mgakb-Zwmuuof) 02/04/2004, 2 Meningococcal (Menactra) 03/27/2016,02/13/2013 PPD-RBMG 10/10/2018,07/03/2009 Pneumococcal(Pedi) Conjugate PCV-7 12/01/2002 Polio (IPV) 02/04/2004, 1,2000,04/22 Tdap 07/20/2011 Varicella 08/25/2007,06/02/2001 Family History Medical History Relation Name Comments Asthma Father Hypertension Father kidney disease on dialysis Hypothyroidism Father proteinuria Father ovarian cancer Maternal Grandmother Seizures Mother diabetes Paternal Grandfather HTN heart disease Paternal Grandmother CA Breast Negative Hx Relation Name Status Comments Father Alive bakari haile Maternal Grandmother Mother Alive bong febous Paternal Grandfather Paternal Grandmother Social History Tobacco Use Types Packs/Day Years Used Date Smoking Tobacco: Never Smokeless Tobacco: Never Tobacco Cessation:Counseling Given: Not Answered Alcohol Use Standard Drinks/Week Comments No 0 (1 standard drink = 0.6 oz pur e alcohol) Sex Assigned at Date Recorded Not on file Job Start Date Occupation Industry Not on file Not on file Not on file Last Filed Vital Signs Vital Sign Reading Time Taken Comments Blood Pressure 116/81 12/24/2023 1:18 PM EDT Pulse 106 12/24/2023 1:18 PM EDT Temperature 36.9 ??C (98.4 ??F) 05/17/2020 10:45 AM E DT Respiratory Rate 14 11/16/2023 2:08 PM EDT Oxygen Saturation - - Inhaled Oxygen Concentration - - Weight 55.8 kg (123 lb) 12/24/2023 1:18 PM EDT Height 144.8 cm (4' 9 ) 05/17/2020 10:45 AM EDT Body Mass Index 26.62 05/17/2020 10:45 AM EDT Plan of Treatment Health Maintenance Due Date Last Done Comments Covid-19 Vaccine (#1) 2000 DTAP/TDAP/TD (7 - Td or Tdap) 07/19/2021, 02/04/2004, 09/06/2002, Additional history exists INFLUENZA (#1) 2023 01/10/2019 (Comp leted), 01/10/2019, 12/14/2015, Additional history exists BASELINE HEALTH EXAM 18-39 02/09/2024 02/08/2019, CHOLESTEROL SCREENING 02/09/2024 02/08/2019, 017 BMI CHECK/ADVISE 03/01/2024 08/11/2017, , 03/27/2016, Additional history exists DEPRESSION SCREENING/FOLLOWUP 03/01/2024 01/03/2020 SOCIAL NEEDS SCREENING 03/01/2024 , 01/03/2020, 01/10/2019 GONORRHEA & CHLAMYDIA SCREENING 12/09/2024 12/10/2023, 07/30/2023, 01/10/2019 (Refused), Additional history exists CERVICAL CANCER SCREENING 07/29/2026 07/30/2023 PNEUMOCOCCAL VACCINE FOR HIG H RISK PATIENTS (#1) 01/11/2065 HUMAN PAPILLOMAVIRUS (HPV) Completed 02/13, 09/21/2011, 07/20/2011 Care Teams Supervisor Boat Outfitting Relationship Specialty Start Date End Date Birgit De Souza MD PCP - General Internal Medicine 09/24/23
== END 2024-04-26 09:30 | disposition home or self-care (01) ==
LOC: HO.US 09:29
PROVIDERS: Visit Provider Urology
DX: N20.1 Calculus of ureter (principal); N20.0 Calculus of kidney
CPT/HCPCS: 76775

== ENCOUNTER → 2024-04-26 09:30 | Outpatient (BNV) | payer OTHER, SELFPAY | PROVIDERS: Visit Provider Radiology Diagnostic Radiology | DX: N20.1 Calculus of ureter (principal) | CPT/HCPCS: 76775 ==